=== PATIENT | female | born 1950 | race African-American/Black ===

== ENCOUNTER 2017-03-11 14:07 | Inpatient (IN) ==
[2017-03-11 15:10] LABS: Apearance,Urine CLOUDY (Clear); Bilirubin,Urine Negative (Negative); Blood, Urine Large mg/dL (Negative); Glucose,Urine (UA) 50 mg/dL (Negative); Ketones,Urine Negative (Negative); Nitrite,Urine Negative (Negative); Protein,Urine 100 MG/DL; RBC,Urine 4048 /HPF (0-4); Squamous Epithelial Cell,Urine Occasional /HPF (0-10); Urine Color Red (Yellow); Urine Urobilinogen < 2.0 EU/DL (0.2-1.0)
--- NOTE | 2017-03-11 15:45 | Emergency Department Note ---
Arrival - Arrival Chief Complaint: Urogenital - Female Stated Complaint: Blood in urine. Blood count low ED Nursing Triage Note: PT C/O HEMATURIA SINCE THIS WEEKEND- PT SEEN AT PCP BEFORE ARRIVING AT ER AND WAS TOLD HER BLOOD COUNTS WERE LOW. PT DENIES DYSURIA OR FREQUENCY. DENIES BLOOD IN STOOL. C/O LOWER ABD PAIN. Mode of Arrival: Wheelchair Source: Patient Time Seen by Provider: 03/11/17 15:11 - History of Present Illness HPI Narrative: 67 y/o female presents to the ER complaining of hematuria. Symptoms started Saturday. She was seen by Dr. Kline in [place] this morning and instructed to come to the Emergency Room. Reports mild discomfort to lower abdomen. Denies dysuria or urinary frequency. Patient family physician believes it is the Eliquis she has been on after total hip replacement on 02/14/17. Her last dose of Eliquis was last night. Past medical history significant for HTN, Right Total Hip Replacement, IDDM. Primary Care Physician: Dr. Kline [employer] Resource Planning Consultant: Dr. Escobar Onset (ago): day(s) (4) Severity: mild Date of Last Menstrual Period: MENOPAUSE Allergies/Adverse Reactions: Allergies Allergy/AdvReac Type Severity Reaction Status Date / Time codeine Allergy Blurry Verified 03/11/17 14:39 Vision Review of System - Review of System 12 point system: reviewed and no additional remarkable complaints except as stated - Review of System Gastrointestinal: Present: abdominal pain Genitourinary female: Present: hematuria Medical,Surgical,& Family Hx - Medical History Cardio: History of: Hypertension Endocrine: History of: Diabetes Mellitus (IDDM) - Surgical History Orthopedic Surgeries: Surgical HX of;: Total Hip Replacement (RIGHT) - Social History Smoking Status: Never smoker Frequency of Alcohol Use: None Type of Drug Use: None Exam Vital Signs: Vital Signs Temperature 98.7 F 03/11/17 16:39 Pulse Rate 70 03/11/17 16:39 Respiratory Rate 18 03/11/17 16:39 Blood Pressure 151/80 03/11/17 16:39 O2 Sat by Pulse Oximetry 20 L 03/11/17 16:05 - General General appearance: alert, in no apparent distress - ENT ENT exam: Present: normal exam, normal oropharynx, mucous membranes moist - Chest Chest inspection: Present: normal inspection - Respiratory Respiratory exam: Present: normal lung sounds bilaterally - Cardiovascular Cardiovascular exam: Present: regular rate, normal rhythm, normal heart sounds - Abdominal Exam Abdominal exam: Present: soft, tenderness (suprapubic ), normal bowel sounds - Extremities Exam Extremities exam: Present: normal inspection, full ROM - Back Exam Back exam: Absent: CVA tenderness (R), CVA tenderness (L) - Neurological Exam Neurological exam: Present: alert, oriented X3 - Psychiatric Psychiatric exam: Present: normal affect, normal mood - Skin Skin exam: Present: warm, dry Course Course Narrative: 1700: Sarah Mendoza MUD MIXER OPERATOR to Non-Urgent to evaluate patient for admission. - Consultations Consultation #1: Hospitalist Time: 16:45 (Discussed case with Noel AVELAR. Will admit patient to their services. ) Results - Labs CBC & BMP: 03/11/17 14:59 03/11/17 14:59 Lab Results: I have reviewed the patients labs Labs: UA: +blood - Diagnostic Findings Procedure: CT Abdomen and Pelvis: image reviewed by me, report reviewed by me ( 1. Increased density within the right upper pole calyces and ureter, likely represent active hemorrhage ) Disposition Clinical Impression: Hematuria, Anemia, Renal insufficiency Case discussed with: patient Disposition: Still a Patient Condition: Stable
[2017-03-11 16:22] LABS: Basophils % 0.6 % (0.0-0.8); Eosinophils # 0.2 10*3/uL (0.0-0.87); Eosinophils % 3.5 % (0.00-10.9); Hematocrit 20.2 VOL% (35.7-47.0); Hemoglobin 6.5 GM/DL (12.0-16.0); Immature Granulocytes % 0.3 %; Immature Granulocytes Absolute 0.02 #; Lymphocytes # 1.4 10*3/uL (1.4-4.0); Lymphocytes % 20.7 % (21.3-54.2); Mean Corpuscular HGB Conc 32.2 GM/DL (32-36); Mean Corpuscular Hemoglobin 27 PG (27-34); Mean Corpuscular Volume 85.2 FL (87-102); Mean Platelet Volume 10.6 FL (9.6-12.0); Monocytes # 0.9 10*3/uL (0.11-0.8); Monocytes % 12.4 % (1.7-12.7); Neutrophils # 4.4 10*3/uL (1.4-7.4); Neutrophils % 62.5 % (38.7-73.9); Platelet Count 217 T/CUMM (130-400); Red Blood Count 2.37 MC/CUMM (3.8-5.5); Red Cell Distribution Width 13.3 % (9.3-17.3)
[2017-03-11 17:03] LABS: Alanine Aminotransferase < 9 U/L (13-56); Albumin 2.9 G/DL (3.4-5.0); Alkaline Phosphatase 69 U/L (45-117); Aspartate Amino Transferase 13 U/L (0-37); Bilirubin,Total < 0.39 MG/DL (0.2-1.0); Blood Urea Nitrogen 78 MG/DL (7-18); Calcium 9.3 MG/DL (8.5-10.1); Glucose 125 MG/DL (74-106); Osmolality,Calculated 302.4 MOS/KG (273-304); Potassium 4.1 MMOL/L (3.5-5.1); Sodium 140 MMOL/L (136-145); Total Protein 7.2 G/DL (6.4-8.3)
--- NOTE | 2017-03-11 17:29 | CT Report ---
Exam: CT abdomen and pelvis without intravenous contrast Exam date: March 11, 2017 1700 hours Clinical History: 67-year-old female with hematuria and abdominal pain, generalized Technique: Axial computed tomography images of the abdomen and pelvis without intravenous contrast. All CT scans at this facility use one or more dose reduction techniques. Automated exposure control, MA/KV adjustment per patient size (including targeted exam Square dose is matched to indication) or iterative reconstruction technique Comparison: No relevant comparisons Findings: Lower thorax: Four-chamber cardiomegaly with moderate pericardial effusion. Abdomen: Liver: Unremarkable Gallbladder and bile ducts: Unremarkable. No calcified stones. No ductal dilatation. Pancreas: Pancreas is normal. Spleen: Spleen is normal. Adrenals: Bilateral adrenal hyperplasia. Kidneys and ureters: Multicystic kidneys with hyperdensity within the right upper pole calyces, likely hemorrhage. Few small calcifications felt to represent cystic wall calcifications bilaterally. No calyceal stones are appreciated Stomach and bowel: No evidence of acute gastritis, colitis or enteritis. No bowel obstruction. Scattered colonic diverticula. Appendix: Normal appendix. No primary or secondary signs to suggest appendicitis. Pelvis: Bladder: Unremarkable Reproductive: Fibroid uterus. Abdomen and pelvis: Intraperitoneal space: No pneumoperitoneum. No free intraperitoneal fluid Bones/joints: No acute osseous abnormality. Spondylitic changes throughout the spinal axis and pelvis Soft tissues: No mass Vasculature: No aortic aneurysm. Atheromatous calcifications noted along the aorta and branch vessels. Lymph nodes: No adenopathy Pelvis is markedly limited in evaluation secondary to streak artifact from bilateral hip arthroplasties Impression: 1. Increased density within the right upper pole calyces and ureter, felt to represent active hemorrhage. Evaluation for underlying renal mass is markedly limited given unenhanced technique. 2. Polycystic kidneys 3. Diverticulosis coli 4. Moderate pericardial effusion 5. Fibroid uterus 6. Other findings as discussed above PROCEDURE INTERPRETED AT [facility] DEPARTMENT OF RADIOLOGY Final Report Signed by: Ken Galvan
--- NOTE | 2017-03-11 17:32 | Hospitalist History & Physical ---
<Sarah Mendoza - Last Filed: 03/11/17 18:01> Assessment and Plan - Time spent with patient Time spent with patient: Greater than 30 minutes (1) Anemia Status: Acute Assessment and plan: 03/11/17 Admit to monitored Bed Start Gentle IV hydration H&H: 6.5 & 20.2: Type and screen, crossmatch with transfuse 2 units PRBCs repeat a.m. labs Will HOLD Eliquis BUN 78 and Creatinine 8.50: consult renal for acute/chronic renal disease ( being followed by Dr Escobar) Will discuss with Dr Rosa for further recommendations with care. Current Visit: Yes (2) Hematuria Status: Acute Current Visit: Yes (3) Renal disease Status: Acute Assessment and plan: 03/11/17 Consulted Nephrology for follow up on BUN 78 and Creatinine 8.50. Patient has been followed by Dr Escobar. Current Visit: Yes History of Present Illness Chief complaint: low H&H, hematuria History of present illness: Ms. Chavez is a 67 year old black female w/PMHx hypertension, diabetes, chronic kidney disease without dialysis, rheumatoid arthritis, recent right total hip replacement 02/14/17 sent home on Eliquis. She reports lower abdominal pain, tenderness for a couple of days. She denies shortness of breath , chest pain, dysuria, or urinary frequency. She denies dizziness or headache. She reports going to PCP Dr Kline and was advised to go to the ED for further evaluation of hematuria. In Non-urgent ED: Labs significant: H&H 6.5 & 20.2, Anion Gap 16.1, BUN 78, Creatinine 8.50, Urinalysis: Red, Cloudy, RBC 4048, blood large. Vital Signs stable Temp 98.7, HR 70, RR 18, BP 151/80, O2 SAT 99 % . Abd/Pelvis CT: Increased density within the right upper pole calyces and ureter , felt to represent active hemorrhage, evaluation for underlying renal mass is markedly limited given unenhanced technique; polycystic kidneys; diverticulosis coli; moderate pericardial effusion; fibroid uterus. She quit smoking 5-6 years ago, she quit drinking alcohol 5-6 years ago, denies illicit drug use. PCP: Dr Kline Renal: Dr Escobar (chronic renal disease/without dialysis) Chronic back pain: Dr Huffman After discussion with Marcelo Casey NP and Dr Rosa with Hospitalist Medicine, it was agreed to admit patient for further evaluation of anemia and hematuria. ONCe Home medications have been added to the system, they will need to be reviewed and reconciliation to follow. Allergies Allergy/AdvReac Type Severity Reaction Status Date / Time codeine Allergy Blurry Verified 03/11/17 14:39 Vision Medical,Surgical,& Family Hx - Medical History Cardio: History of: Hypertension Endocrine: History of: Diabetes Mellitus (IDDM) - Surgical History Orthopedic Surgeries: Surgical HX of;: Orthopedic Surgery (right hand tendon release), Total Hip Replacement (RIGHT) - Social History Smoking Status: Former smoker (quit 5-6 years ago) Frequency of Alcohol Use: None (quit 5-6 years ago) Type of Drug Use: None Marital Status: Single Lives With:: her daughter and granddaughter live with her Functional capacity: uses cane/walker 12 point system: reviewed and no additional remarkable complaints except as stated - Constitutional Constitutional: Present: chills. Absent: fever(s) - EENT Nose, mouth and throat: Absent: epistaxis - Cardiovascular Cardiovascular: Absent: chest pain at rest, chest pain with activity, dyspnea, dyspnea on exertion - Respiratory Respiratory: Absent: dyspnea, hemoptysis - Gastrointestinal Gastrointestinal: Present: abdominal pain. Absent: hematemesis, nausea, vomiting - Genitourinary Genitourinary: Present: hematuria. Absent: dysuria, urinary frequency Exam - Constitutional Vitals: Period Temp Pulse Resp BP Sys/Campos Pulse Ox Last 24 Hr 98.7 F-98.7 F 70-95 18-18 151-177/78-80 20-99 General appearance: normal weight, no acute distress - Head Head exam: Present: normal inspection - Eye Eye exam: Present: EOMI Pupils: Present: AYAAN - Neck Neck exam: Present: normal inspection. Absent: thyromegaly - Respiratory Respiratory exam: Present: clear to auscultation bilaterally. Absent: rhonchi, stridor, wheezes - Cardiovascular Cardiovascular exam: Present: regular rate and rhythm - GI/Abdominal GI/Abdominal exam: Present: normal bowel sounds, tenderness (lower abdominal tenderness), soft. Absent: firm, guarding, rebound - Extremities Exam Extremities exam: Present: normal inspection, full ROM. Absent: edema - Neurological Exam Neurological exam: Present: alert, oriented X3, CN II-XII intact - Psychiatric Psychiatric exam: Present: normal affect, normal mood. Absent: agitated, anxious - Skin Skin exam: Present: normal color, warm, dry Results - Labs CBC & BMP: 03/11/17 14:59 03/11/17 14:59 Lab Results: I have reviewed the past 24 hour labs Labs: URINALYSIS: color: red Nitrate: negative leukocytes: negative Urine RBC 4048 - Diagnostic Findings Procedure: CT Abdomen and Pelvis: report reviewed by me (Increased density within the right upper pole calyces and ureter, felt to represent active hemorrhage; evaluation for underlying renal mass is markedly limited given unenhanced technique; polycystic kidneys; diverticulosis coli; moderate pericardial effusion; fibroid uterus.) <ShelleyMadelin R - Last Filed: 03/11/17 20:34> Assessment and Plan (1) Hematuria Status: Acute Assessment and plan: Three-way Morrissey with irrigation, consult Dr. Orozco from neurology, CT shows renal mass versus hematoma Current Visit: Yes (2) Chronic renal disease, stage V Status: Acute Assessment and plan: Consult Yuni Rose, hydration Current Visit: Yes (3) Hypertension Status: Acute Assessment and plan: Coreg 6.25 mg p.o. twice daily Current Visit: Yes (4) Anemia Status: Acute Assessment and plan: DC Eliquis, 2 units of packed red blood cells and monitor hemoglobin every 6 hours, patient denies a history of atrial fib we get a stat EKG Current Visit: Yes History of Present Illness History of present illness: Ms. Chavez is a 67 year old female seen and examined. Has chronic renal failure and sees dr. Escobar, recently been taken off eliquis. Denies blood or black tarry stools Medical,Surgical,& Family Hx - Family History Family History: Denies;: Family Cancer, Family Diabetes, Family Heart Disease - EENT Eyes: Absent: blurry vision, diplopia Ears: Absent: decreased hearing, ear discharge - Neurological Neurological: Absent: confusion, headache(s) - Psychiatric Psychiatric: Absent: anxiety, depression - Endocrine Endocrine: Present: fatigue. Absent: cold intolerance, heat intolerance - Hematologic/Lymphatic Hematologic/Lymphatic: Present: easy bleeding, easy bruising Exam - Constitutional Vitals: Period Temp Pulse Resp BP Sys/Campos Pulse Ox Last 24 Hr 98.7 F-98.7 F 70-95 18-20 151-177/78-80 20-99 - Head Head exam: Present: normocephalic - Eye Eye exam: Absent: scleral icterus Pupils: Present: normal accommodation - ENT ENT exam: Present: normal exam, normal external ear exam - Cardiovascular Cardiovascular exam: Absent: systolic murmur - Neurological Exam Neurological exam: Present: reflexes normal. Absent: motor sensory deficit Results - Labs CBC & BMP: 03/11/17 14:59 03/11/17 14:59
[2017-03-11] MEDS ORDERED: GLUCAGON 1 MG VIAL IM PRN (17:50)
[2017-03-11] MEDS ORDERED: ONDANSETRON 4 MG/2 ML VIAL IV PRN (17:50)
[2017-03-11] MEDS ORDERED: ACETAMINOPHEN 325 MG TABLET PO PRN (17:50)
[2017-03-11] MEDS ORDERED: DEXTROSE 50% 25 GM/50 ML VIAL IV PRN (17:50)
[2017-03-11] MEDS ORDERED: SODIUM CHLORIDE 0.9% 250 ML IV PRN (17:56)
[2017-03-11] MEDS: SODIUM CHLORIDE 0.9% 1,000 ML IV SCH (21:39)
[2017-03-11] MEDS: CARVEDILOL 6.25 MG TABLET PO SCH (21:39)
[2017-03-11] MEDS: MORPHINE 2 MG/1 ML SYRINGE IV PRN (21:40)
[2017-03-11] MEDS: INSULIN LISPRO 100 UNIT/ML SUBCUT SCH (21:40)
[2017-03-12] MEDS: MORPHINE 2 MG/1 ML SYRINGE IV PRN ×2 (01:46→09:25)
[2017-03-12 07:26] LABS: Hemoglobin 8.1 GM/DL (12.0-16.0)
[2017-03-12 07:32] LABS: INR 1.1
[2017-03-12 07:49] LABS: Basophils % 0.2 % (0.0-0.8); Hematocrit 25.2 VOL% (35.7-47.0); Immature Granulocytes % 0.6 %; Immature Granulocytes Absolute 0.08 #; Lymphocytes # 0.7 10*3/uL (1.4-4.0); Lymphocytes % 5.5 % (21.3-54.2); Mean Corpuscular HGB Conc 32.9 GM/DL (32-36); Mean Corpuscular Hemoglobin 28 PG (27-34); Mean Corpuscular Volume 84.8 FL (87-102); Mean Platelet Volume 10.8 FL (9.6-12.0); Monocytes # 0.7 10*3/uL (0.11-0.8); Monocytes % 5.8 % (1.7-12.7); Neutrophils % 87.9 % (38.7-73.9); Platelet Count 196 T/CUMM (130-400); Red Cell Distribution Width 13.7 % (9.3-17.3)
--- NOTE | 2017-03-12 07:58 | Nephrology Consult Note ---
History of Present Illness Chief complaint: increased bun and creatinine History of present illness: Ms. Chavez is a 67 year old female who I follow in the outpatient setting for chronic renal failure. The patient was admitted yesterday for hematuria. The patient states about 3 days prior to admission she developed some severe pain in her abdomen and noticed some blood in her toilet bowl after going to the bathroom. The pain persisted over the ensuing day or so and she continued to have some blood in her urine. The patient's pain had improved by the following day. Patient did have some nausea and vomiting yesterday. The patient has had a CT scan of her abdomen that shows a density in her right kidney thought to be consistent with a hematoma. The patient is also noted to have multiple cysts throughout both kidneys. The patient denies any shortness of breath she denies any decreased intake. She does state that her urine output has decreased some the past few days. ROS: Head - denies headaches ENT - denies sore throat Lymphatics - denies lymphadenopathy Hematology -see HPI Heart - denies chest pain Lungs - denies shortness of breath Abdomen -see HPI Musculoskeletal -complains of hurting all over Skin - denies rash Neurology - denies stroke General - denies fever PE: General: in no acute distress Eyes: Pupils are round and reactive, conjunctivae are clear ENT: Nose is clear, O/P is benign Neck: Supple, no thyromegaly Lymphatics: No cervical, supraclavicular or axillary adenopathy Heart: Regular rate and rhythm, no edema Lungs: Clear to auscultation anteriorly, chest expansion symmetric Abdomen: Soft, normoactive bowel sounds, no hepatomegaly, non-tender Musculoskeletal: No joint erythema or effusions or joint asymmetry Skin: Normal turgor, normal hydration, no rash Neuro/Psych: Alert and cooperative with fair insight Home Medications Medication Instructions Recorded Confirmed Type Amlodipine Besylate 1 tablet PO DAILY 03/11/17 03/11/17 History Apixaban [Eliquis] 1 tablet PO BID 03/11/17 03/11/17 History Carvedilol 1 tablet PO BID 03/11/17 03/11/17 History Furosemide Tab [Lasix Tab] 1 tablet PO DAILY 03/11/17 03/11/17 History Insulin Detemir [Levemir] 20 units SUBCUT BID 03/11/17 03/11/17 History Lisinopril/Hctz 20-25 [Prinzide 1 tablet PO DAILY 03/11/17 03/11/17 History 20-25] hydrOXYzine pamoate [Hydroxyzine 25 mg PO Q8HR PRN 03/11/17 03/11/17 History Pamoate] Allergies Allergy/AdvReac Type Severity Reaction Status Date / Time codeine Allergy Blurry Verified 03/11/17 14:39 Vision Medical,Surgical,& Family Hx - Medical History Cardio: History of: Hypertension Psychological: No history of: Anxiety Disorders, ADHD, Behavior Problems, Bipolar Disorder, Depression, Previous Suicide Attempt, Psychiatric/Substance Abuse Tx, Schizophrenia, Violent Behavior, Psychiatric Problems Endocrine: History of: Diabetes Mellitus (IDDM) Rheumatology: History of;: Rheumatoid Arthritis Genitourinary: History of: Problems (hematuria) - Surgical History Abdominal Surgeries: Patient denies: Abdominal Surgery Orthopedic Surgeries: Surgical HX of;: Orthopedic Surgery (right hand tendon release), Total Hip Replacement (RIGHT) - Family History Family History: Reports;: Family Diabetes, Family Hypertension Denies;: Family Cancer, Family Heart Disease - Social History Smoking Status: Never smoker Frequency of Alcohol Use: None Type of Drug Use: None Exam - Vital Signs Vital signs: Period Temp Pulse Resp BP Sys/Campos Pulse Ox Last 24 Hr 97.5 F-98.8 F 61-95 16-20 103-177/49-80 20-99 Results - Labs CBC & BMP: 03/12/17 06:27 03/11/17 14:59 Assessment and Plan (1) Chronic renal disease, stage V Status: Acute Assessment and plan: This patient's creatinine as an outpatient about a month or so ago was around 8 mg/dL after her hip surgery at increased around 9 mg/dL, her kidney function remained stable her chemistries look okay she is having some nausea and vomiting however think this may be related to her acute illness. She does have a fistula in her left arm and it would be easy to start her on dialysis if necessary. However at this time I think the patient remains asymptomatic enough that we can continue to monitor her kidney function without dialysis for right now. Current Visit: Yes (2) Blood loss anemia Status: Acute Current Visit: Yes (3) Diabetes mellitus Status: Acute Current Visit: Yes (4) Hematuria Status: Acute Current Visit: Yes (5) Hypertension Status: Acute Current Visit: Yes
[2017-03-12 08:00] LABS: Magnesium 2.7 MG/DL (1.8-2.4); Potassium 4.1 MMOL/L (3.5-5.1)
[2017-03-12 08:02] LABS: Hemoglobin 8.3 GM/DL (12.0-16.0); Red Blood Count 2.97 MC/CUMM (3.8-5.5); White Blood Count 12.6 T/CUMM (4-12)
[2017-03-12 08:05] LABS: % Iron Saturation 7.4 % (18-50); Ferritin 406.4 ng/ml (8-252)
[2017-03-12 08:13] LABS: Band Neutrophils 1 % (0-10); Giant Platelets Few; Hypochromasia 1+; Lymphocytes 3 % (20-55); Microcytosis Slight; Ovalocytes Slight; Platelet Estimate Normal; Segmented Neutrophils 91 % (50-85); Total Cells Counted 100
[2017-03-12 08:22] LABS: Folate > 24.0 NG/ML (5.4-24.0); Vitamin B12 933 PG/ML (211-911)
[2017-03-12] MEDS ORDERED: DESMOPRESSIN 10 MCG NASAL SPRAY 5 ML BOTTLE BOTH NARES ONE (09:00)
--- NOTE | 2017-03-12 09:09 | Urology Consultation ---
Assessment and Plan - Time spent with patient Time spent with patient: Greater than 30 minutes (1) Gross hematuria Status: Acute Current Visit: Yes (2) Abnormal CT of the abdomen Status: Acute Assessment and plan: Hematuria is clearing. I am going to order an ultrasound to evaluate her kidneys. Difficult to tell with her CT because it is not a contrasted study. Has multiple cysts. No stones and no discrete masses. Current Visit: Yes History of Present Illness - Data of Consult Patient: new to practice Consult date: 03/12/17 Requesting Physician: Gee Escobar - Consult Narrative Reason for consult: Gross hematuria History of present illness: Ms. Chavez is a 67 year old female who had a hip replacement. She was placed on Eliquis and developed gross hematuria. She is admitted and had a three-way irrigation placed in. Her E fluent is clear now we will remove her Morrissey. CT scan shows the upper pole system that is irregular and probably had some clot. No definite mass is seen. No stones are seen. She does have chronic renal failure and has access placed but she is not on dialysis as yet. In reviewing the CT is very difficult to determine what is going on in that upper pole. I am going to order a renal ultrasound see if that will help us. I talked over the CT scan with Dr. Glavan. CC: Crystal Cortez MD - Home Medications and Allergies Home Medications: Home Medications Medication Instructions Recorded Confirmed Type Amlodipine Besylate 1 tablet PO DAILY 03/11/17 03/11/17 History Apixaban [Eliquis] 1 tablet PO BID 03/11/17 03/11/17 History Carvedilol 1 tablet PO BID 03/11/17 03/11/17 History Furosemide Tab [Lasix Tab] 1 tablet PO DAILY 03/11/17 03/11/17 History Insulin Detemir [Levemir] 20 units SUBCUT BID 03/11/17 03/11/17 History Lisinopril/Hctz 20-25 [Prinzide 1 tablet PO DAILY 03/11/17 03/11/17 History 20-25] hydrOXYzine pamoate [Hydroxyzine 25 mg PO Q8HR PRN 03/11/17 03/11/17 History Pamoate] Allergies/Adverse Reactions: Allergies Allergy/AdvReac Type Severity Reaction Status Date / Time codeine Allergy Blurry Verified 03/11/17 14:39 Vision Medical,Surgical,& Family Hx - Medical History Cardio: History of: Hypertension Psychological: No history of: Anxiety Disorders, ADHD, Behavior Problems, Bipolar Disorder, Depression, Previous Suicide Attempt, Psychiatric/Substance Abuse Tx, Schizophrenia, Violent Behavior, Psychiatric Problems Endocrine: History of: Diabetes Mellitus (IDDM) Rheumatology: History of;: Rheumatoid Arthritis Renal: History of: Renal Failure Genitourinary: History of: Problems (hematuria) - Surgical History Abdominal Surgeries: Patient denies: Abdominal Surgery Orthopedic Surgeries: Surgical HX of;: Orthopedic Surgery (right hand tendon release), Total Hip Replacement (RIGHT) - Family History Family History: Reports;: Family Diabetes, Family Hypertension Denies;: Family Cancer, Family Heart Disease - Social History Smoking Status: Never smoker Frequency of Alcohol Use: None Type of Drug Use: None 12 point system: reviewed and no additional remarkable complaints except as stated - Genitourinary Genitourinary: Present: hematuria Exam - Constitutional Vitals: Period Temp Pulse Resp BP Sys/Campos Pulse Ox Last 24 Hr 97.5 F-98.8 F 61-95 16-20 103-177/49-80 20-99 - GI/Abdominal GI/Abdominal exam: Present: normal bowel sounds, tenderness (Suprapubic), soft, other (No flank masses or CVA tenderness). Absent: ascites, distended, firm, guarding, hernia, mass, rebound Results - Labs CBC & BMP: 03/12/17 06:27 03/12/17 06:25 Lab Results: I have reviewed the past 24 hour labs - Diagnostic Findings Procedure: CT Abdomen and Pelvis: image reviewed by me, report reviewed by me ( Discussed with Dr. Galvan)
[2017-03-12] MEDS: CARVEDILOL 6.25 MG TABLET PO SCH ×2 (09:25→20:45)
[2017-03-12] MEDS: INSULIN LISPRO 100 UNIT/ML SUBCUT SCH ×4 (09:25→20:44)
[2017-03-12] MEDS: OXYBUTYNIN XL 5 MG TABLET PO SCH (09:25)
[2017-03-12] MEDS: PANTOPRAZOLE 40 MG VIAL IV SCH (09:25)
--- NOTE | 2017-03-12 09:28 | EKG Report ---
Stationary ECG Study [facility] Test Date: 03/12/2017 9:00:53 AM Pat Name: KARLEE DOUGLAS Department: Room: 529 Gender: F Bobbin Inspector: MARTHA : 1950 Requested by: Madelin Dixon Order Number: [id number] Reading MD: JUVENTINO THOMPSON Intervals [place] Rate: 79 P: 44 MI: 142 QRS: 44 QRSD: 97 T: -78 QT: 393 QTc: 428 Interpretive Statements SINUS RHYTHM Electronically Signed On 03-12-17 22:17:08 CDT by JUVENTINO THOMPSON [email or web address]
--- NOTE | 2017-03-12 11:48 | Ultrasound Report ---
US renal Bilateral Indication: Gross hematuria. Comparison: CT performed previous day at 1656 hours. Technique: Multiple longitudinal and transverse real-time sonographic images of the kidneys were obtained. Findings: The right kidney measures 14.0 x 8.1 x 7.2 cm, and the left kidney measures 13.4 x 7.8 x 6.1 cm. Numerous cortical and parapelvic cysts, some of which demonstrate thin wall echogenicities consistent with calcifications. No solid mass lesions. There is no evidence of nephrolithiasis or abnormal perinephric fluid collections. There is no hydronephrosis. There is no evidence of surrounding ascites. Ultrasound images were captured and stored. IMPRESSION: Polycystic kidneys. No solid mass lesions demonstrated. PROCEDURE INTERPRETED AT [facility] DEPARTMENT OF RADIOLOGY Final Report Signed by: Ken Galvan
[2017-03-12] MEDS: SODIUM CHLORIDE 0.9% 1,000 ML IV SCH ×2 (12:39→21:56)
--- NOTE | 2017-03-12 15:26 | Hospitalist Progress Note ---
Hospitalist: Subjective Interval history: This 67-year-old -[place] female with history of chronic kidney disease who presented with gross hematuria. She had recent hip surgery and was placed on Eliquis. Hematuria has significantly improved. Exam - Constitutional Vitals: Period Temp Pulse Resp BP Sys/Campos Pulse Ox Last 24 Hr 97.5 F-98.8 F 61-95 16-20 103-185/49-80 20-98 Exam: General: No Acute Distress HEENT: Normocephalic, atraumatic, Extra ocular movements intact Neck: Supple, No JVD Chest: Clear to auscultation B/L CV: S1 + S2 audible without murmur, gallop or rub Abd: soft, NT, Non-distended, BS + Ext: No edema Skin: No purpura, bruising or rash Rheumatologic: No Joint deformities Neurologic: Awake and alert Results - Labs CBC & BMP: 03/12/17 06:27 03/12/17 06:25 - Impressions Assessment and Plan: Gross hematuria Status: Acute Current Visit: Yes This is improving. CT abdomen pelvis without contrast showed a possible right upper pole hematoma. We will follow up on ultrasound of the kidneys. Anemia of genitourinary blood loss Status: Acute Current Visit: Yes Hematocrit is much better after blood transfusion Chronic renal disease, stage V Status: Acute Assessment and plan: Currently she is not on hemodialysis, but does have AV fistula in case she needs it Current Visit: Yes Ess Hypertension Status: Acute Current Visit: Yes Diabetes mellitus-2 Status: Acute Current Visit: Yes Quality Measures - Stroke Symptom Onset Unknown: No
--- NOTE | 2017-03-13 07:48 | Nephrology Progress Note ---
Nephrology - PN: Subj Interval history: Patient complains of some nausea and vomiting with supper last night. Review of systems pulmonary she denies shortness of breath Physical exam general the patient is chronically ill-appearing Assessment/plan 1. Chronic kidney disease stage V-this patient's creatinine is increased to 9.3 mg/dL, she is having some nausea and vomiting on a regular basis, I talked to her about starting dialysis she did not object to this. At this point I am going to go ahead and plan on dialyzing her today. 2. Hematuria-patient's hematuria had cleared although she had some more hematuria this morning apparently we will continue to monitor hematocrit 3. Anemia-we will start EPO on dialysis 4. Diabetes mellitus 5. Hypertension Exam (PN)-Nephrology - Vital Signs Vital signs: Period Temp Pulse Resp BP Sys/Campos Pulse Ox Last 24 Hr 97.9 F-99.2 F 68-92 18-20 134-185/58-92 84-93 - Lab 03/12/17 06:27 03/12/17 06:25 Most recent lab results Calcium 9.0 MG/DL (8.5-10.1) 03/12/17 06:25 Magnesium 2.7 MG/DL (1.8-2.4) H 03/12/17 06:25 Assessment and Plan (1) Chronic renal disease, stage V Status: Acute Assessment and plan: This patient's creatinine as an outpatient about a month or so ago was around 8 mg/dL after her hip surgery at increased around 9 mg/dL, her kidney function remained stable her chemistries look okay she is having some nausea and vomiting however think this may be related to her acute illness. She does have a fistula in her left arm and it would be easy to start her on dialysis if necessary. However at this time I think the patient remains asymptomatic enough that we can continue to monitor her kidney function without dialysis for right now. Current Visit: Yes (2) Blood loss anemia Status: Acute Current Visit: Yes (3) Diabetes mellitus Status: Acute Current Visit: Yes (4) Hematuria Status: Acute Current Visit: Yes (5) Hypertension Status: Acute Current Visit: Yes
[2017-03-13] MEDS ORDERED: EPOETIN ALFA 2,000 UNIT/1 ML VIAL IV PRN (07:52)
[2017-03-13] MEDS: INSULIN LISPRO 100 UNIT/ML SUBCUT SCH ×4 (08:45→21:27)
[2017-03-13] MEDS: CARVEDILOL 6.25 MG TABLET PO SCH ×3 (08:46→21:27)
[2017-03-13] MEDS: OXYBUTYNIN XL 5 MG TABLET PO SCH (08:47)
[2017-03-13] MEDS: PANTOPRAZOLE 40 MG VIAL IV SCH (08:47)
[2017-03-13 09:14] LABS: % Iron Saturation 8.9 % (18-50); Ferritin 385.1 ng/ml (8-252)
[2017-03-13 09:43] LABS: Basophils # 0.1 10*3/uL (0.0-0.2); Basophils % 0.5 % (0.0-0.8); Eosinophils # 0.1 10*3/uL (0.0-0.87); Eosinophils % 0.5 % (0.00-10.9); Hematocrit 22.2 VOL% (35.7-47.0); Immature Granulocytes % 0.4 %; Immature Granulocytes Absolute 0.04 #; Lymphocytes # 1.3 10*3/uL (1.4-4.0); Lymphocytes % 11.8 % (21.3-54.2); Mean Corpuscular HGB Conc 32.9 GM/DL (32-36); Mean Corpuscular Hemoglobin 28 PG (27-34); Mean Corpuscular Volume 85.1 FL (87-102); Mean Platelet Volume 10.9 FL (9.6-12.0); Monocytes # 1.2 10*3/uL (0.11-0.8); Neutrophils # 8.3 10*3/uL (1.4-7.4); Neutrophils % 75.8 % (38.7-73.9); Platelet Count 192 T/CUMM (130-400); Red Blood Count 2.61 MC/CUMM (3.8-5.5); Red Cell Distribution Width 14.1 % (9.3-17.3); White Blood Count 10.9 T/CUMM (4-12)
[2017-03-13 09:48] LABS: Hemoglobin 7.3 GM/DL (12.0-16.0)
--- NOTE | 2017-03-13 09:59 | Physician Query Form ---
CLICK EDIT DOCUMENT TO SELECT QUERY ANSWER --> OK --> SIGN Snow Lorenzo RN Clinical Industrial Production Manager W) [phone] (f) [phone] [email or web address] PROVIDERS: Make your selection(s) from the choices in EACH section by typing an "x" and enter comments in the comment section. Please use your independent medical judgment in providing your response. This request does not imply that any particular answer is desired or expected. CLINICAL INDICATORS: (Providers should not edit this section) Based on lab results of creatinine on admission of 8.50 and increased to 9.30 with a GFR of 5. Pt. treated with IV fluids of Normal Saline. Pt. has documented CKD stage 5. Clarify which of the following most accurately represents the patient's renal status: ( ) Acute renal failure with underlying Chronic Kidney Disease (CKD) - please provide stage below ( ) CKD - please provide stage below ( ) End Stage Renal Disease ( ) Other, please specify: ( ) Clinically unable to determine Chronic Kidney Disease Stages Source: National Kidney Disease Foundation ( ) Stage I (eGFR > or = 90) ( ) Stage II (eGFR 60 - 89) ( ) Stage III (eGFR 30 - 59) ( ) Stage IV (eGFR 15 - 29) ( ) Stage V (eGFR < 15 or dialysis) COMMENTS: PLEASE ALSO DOCUMENT RESPONSE IN PROGRESS NOTES AND/OR DISCHARGE SUMMARY Use of terms such as suspected, likely, or probable (associated with a specific diagnosis that is being evaluated, monitored, or treated as if it exists) are acceptable and can be restated in the discharge summary if not ruled out. MTDD
[2017-03-13 10:14] LABS: Hepatitis A Ab IgM Quant 0.42 Index; Hepatitis A Ab IgM Result Negative (Negative); Hepatitis B Core IgM Quant 0.12 Index; Hepatitis B Core IgM Result Negative (Negative); Hepatitis B Surface Ag Quant 0.15 Index; Hepatitis B Surface Ag Result Negative (Negative); Hepatitis C Virus Ab Quant 0.21 Index; Hepatitis C Virus Ab Result Negative (Negative)
[2017-03-13] MEDS ORDERED: SODIUM CHLORIDE 0.9% 250 ML IV PRN (10:57)
--- NOTE | 2017-03-13 12:15 | EKG Report ---
Stationary ECG Study [facility] Test Date: 03/13/2017 12:14:38 PM Pat Name: KARLEE DOUGLAS Department: Room: 529 Gender: F Dermatological Surgeon: MARTHA : 1950 Requested by: Crystal Cortez Order Number: [id number] Reading MD: JUVENTINO THOMPSON Intervals [place] Rate: 138 P: 999 MS: 0 QRS: 17 QRSD: 89 T: 0 QT: 291 QTc: 372 Interpretive Statements ATRIAL FLUTTER WITH RAPID VENTRICULAR RESPONSE Electronically Signed On 03-13-17 21:18:29 CDT by JUVENTINO THOMPSON [email or web address]
--- NOTE | 2017-03-13 13:03 | Dialysis Note ---
Dialysis Note - Dialysis Note Patient seen on dialysis. She is tolerating the procedure. Blood pressures noted 170/85 Abdomen is soft. Lungs clear to auscultation. Cardiovascular is irregular rate.
[2017-03-13] MEDS: MORPHINE 2 MG/1 ML SYRINGE IV PRN (15:32)
--- NOTE | 2017-03-13 16:40 | Hospitalist Progress Note ---
Hospitalist: Subjective Interval history: Patient developed tachycardia while she was on hemodialysis, which was found to be due to new onset atrial ablation with RVR. Hematuria has improved. Exam - Constitutional Vitals: Period Temp Pulse Resp BP Sys/Campos Pulse Ox Last 24 Hr 98.2 F-99.4 F 68-138 16-20 134-155/58-92 88-93 Exam: General: No Acute Distress HEENT: Normocephalic, atraumatic, Extra ocular movements intact Neck: Supple, No JVD Chest: Clear to auscultation B/L CV: S1 + S2 audible without murmur, gallop or rub Abd: soft, NT, Non-distended, BS + Ext: No edema Skin: No purpura, bruising or rash Rheumatologic: No Joint deformities Neurologic: Awake and alert Results - Labs CBC & BMP: 03/13/17 08:19 03/12/17 06:25 - Impressions Assessment and Plan: Gross hematuria Status: Acute Current Visit: Yes This is improving. CT abdomen pelvis without contrast showed a possible right upper pole hematoma. We will follow up on ultrasound of the kidneys. Anemia of genitourinary blood loss Status: Acute Current Visit: Yes Hematocrit is much better after blood transfusion Paroxysmal atrial fibrillation with RVR Status: Acute Assessment and plan: This is new onset, heart rate was in 130s. She was on Eliquis and this has been on hold because of hematuria and anemia. Continue Coreg Current Visit: Yes Chronic renal disease, stage V/ESRD Status: Acute Assessment and plan: She has been started on hemodialysis this admission Current Visit: Yes Ess Hypertension Status: Acute Current Visit: Yes Diabetes mellitus-2 Status: Acute Current Visit: Yes Quality Measures - Stroke Symptom Onset Unknown: No
--- NOTE | 2017-03-13 18:34 | Urology Progress Note ---
Assessment and Plan (1) Gross hematuria Status: Acute Current Visit: Yes (2) Abnormal CT of the abdomen Status: Acute Assessment and plan: Hematuria is clearing. I am going to order an ultrasound to evaluate her kidneys. Difficult to tell with her CT because it is not a contrasted study. Has multiple cysts. No stones and no discrete masses. Current Visit: Yes Urology - PN: Subj Interval history: Patient had a mild amount hematuria today. Renal ultrasound shows multiple cysts. Her creatinine is risen and they have started her on dialysis. I am of the opinion, that we observe the situation. We do not see any solid renal mass. If he continues to have hematuria we may ureteroscope this. But hopefully this will settle down. Exam - Constitutional Vitals: Period Temp Pulse Resp BP Sys/Campos Pulse Ox Last 24 Hr 97.6 F-99.4 F 68-138 16-20 134-164/58-92 88-93 Results - Labs CBC & BMP: 03/13/17 08:19 03/12/17 06:25
[2017-03-14] MEDS: MORPHINE 2 MG/1 ML SYRINGE IV PRN (01:28)
--- NOTE | 2017-03-14 06:11 | Cardiology Consult Note ---
Fred Nagel April, RN, am scribing for, and in the presence of, Luis Vu MD 06:11. Assessment and Plan - Time spent with patient Time spent with patient: Greater than 30 minutes (Due to assessment, planning, documentation, medication review) (1) Atrial fibrillation with RVR Status: Acute Assessment and plan: She was found to be in atrial fibrillation with heart rates in the 130s while on dialysis. We will place her on telemetry monitoring. She was on Eliquis and this has been on hold because of hematuria and low blood counts. Current Visit: Yes (2) Anemia Status: Acute Assessment and plan: She has had 2 units of packed red blood cells this admission. H&H today is 7.3 and 22.2. Current Visit: Yes (3) Chronic renal disease, stage V Status: Chronic Assessment and plan: She started dialysis today, Dr. Escobar is following. Current Visit: Yes (4) Diabetes mellitus Status: Chronic Assessment and plan: Hospital medicine is managing. Current Visit: Yes (5) Hematuria Status: Acute Assessment and plan: Nephrology and urology are both following. Current Visit: Yes (6) Hypertension Status: Chronic Assessment and plan: Blood pressures were elevated on admission, they have improved over the last day or so. We will continue to monitor. Current Visit: Yes History of Present Illness - Data of Consult Patient: new to practice Consult date: 03/13/17 Requesting Physician: Crystal Cortez Primary care physician: Garrett Kline - Consult Narrative Reason for consult: New-onset A. fib RVR History of present illness: Medical Records Secretary: At [place] (she has only been seen for preoperative evaluation) PCP: Dr. Garrett Kline at [facility] Sociologist: Dr. Escobar Ms. Chavez is a 67 year old female with a history of hypertension, chronic kidney disease, rheumatoid arthritis, and IDDM. She is a poor historian but she denies ever having any issues with her heart rhythm or ever having had stress test or heart catheterization. Surgical history includes left hand, right hip, and left hip. She reports she quit smoking 45 years ago. Ms. Chavez presented to the emergency department on March 11 with complaints of hematuria and low blood count per her primary doctor. She had undergone total hip replacement on February 14 and administered on Eliquis. EKG on admission showed sinus rhythm with heart rate of 79. H&H on admission was 6.5 and 20.2 she has been transfused 2 units of packed red blood cells. H&H today is slightly improved at 7.3 and 22.2. Creatinine has increased to 9.3 as of yesterday with a BUN of 81. She was dialyzed for the first time today. While at dialysis she was noted to have heart rates in the 130s and in EKG was done. It showed atrial fibrillation with a heart rate of 138. She denies any chest pain, shortness of breath, palpitations, or dizziness at the time. I am seeing Ms. Chavez that she is back in her room after completing dialysis. She continues to deny any chest pain or shortness of breath. At the time her heart rate feels regular and her pulse is 80. We will place her on a monitoring tech. An echo has been ordered. We will review this. I have reviewed this pts evaluation and treatment plan with Nory Chow RN and agree with the evaluation and treatment plans as outlined above. I have personally examined this pt and reviewed the details of this case in person. CC: Crystal Cortez MD - Home Medications and Allergies Home Medications: Home Medications Medication Instructions Recorded Confirmed Type Amlodipine Besylate 1 tablet PO DAILY 03/11/17 03/11/17 History Apixaban [Eliquis] 1 tablet PO BID 03/11/17 03/11/17 History Carvedilol 1 tablet PO BID 03/11/17 03/11/17 History Furosemide Tab [Lasix Tab] 1 tablet PO DAILY 03/11/17 03/11/17 History Insulin Detemir [Levemir] 20 units SUBCUT BID 03/11/17 03/11/17 History Lisinopril/Hctz 20-25 [Prinzide 1 tablet PO DAILY 03/11/17 03/11/17 History 20-25] hydrOXYzine pamoate [Hydroxyzine 25 mg PO Q8HR PRN 03/11/17 03/11/17 History Pamoate] Allergies/Adverse Reactions: Allergies Allergy/AdvReac Type Severity Reaction Status Date / Time codeine Allergy Blurry Verified 03/11/17 14:39 Vision - Constitutional Constitutional: Present: as per HPI - EENT Eyes: Present: requires corrective lense. Absent: blurry vision Ears: Absent: decreased hearing, ear pain, tinnitus Nose, mouth and throat: Absent: dysphagia, epistaxis, headache(s), neck pain - Cardiovascular Cardiovascular: Absent: chest pain at rest, chest pain with activity, diaphoresis, dyspnea, dyspnea on exertion, edema, radiating jaw, neck or arm pain, lightheadedness, orthopnea, palpitations - Respiratory Respiratory: Present: cough. Absent: dyspnea, dyspnea on exertion, wheezing - Gastrointestinal Gastrointestinal: Present: diarrhea, nausea, vomiting. Absent: abdominal pain, constipation, hematemesis, hematochezia, melena - Genitourinary Genitourinary: Present: hematuria. Absent: dysuria - Musculoskeletal Musculoskeletal: Present: back pain, limited range of motion, muscle weakness - Neurological Neurological: Present: abnormal gait. Absent: confusion, dizziness, frequent falls, headache(s), syncope - Psychiatric Psychiatric: Absent: anxiety, depression - Hematologic/Lymphatic Hematologic/Lymphatic: Present: easy bleeding, easy bruising Medical,Surgical,& Family Hx - Medical History Cardio: History of: Hypertension Endocrine: History of: Diabetes Mellitus (IDDM) Rheumatology: History of;: Rheumatoid Arthritis Renal: History of: Renal Failure Genitourinary: History of: Problems (hematuria) - Surgical History Orthopedic Surgeries: Surgical HX of;: Orthopedic Surgery (left hand tendon release), Total Hip Replacement (RIGHT) - Family History Family History: Reports;: Family Diabetes, Family Hypertension Denies;: Family Cancer, Family Heart Disease - Social History Smoking Status: Former smoker (Quit 4-5 years ago) Have you smoked in the last 12 months: No Frequency of Alcohol Use: None Type of Drug Use: None Lives With:: Children Functional capacity: uses cane/walker Physical Examination Vital Signs Temp Pulse Resp BP Pulse Ox 98.7 F 70 18 151/80 99 03/11/17 14:34 03/11/17 14:34 03/11/17 14:34 03/11/17 14:34 03/11/17 14:34 General: Present: Appears Well, No Apparent Distress HEENT: Present: PERRL, Mucus Membranes Moist Neck: Present: Supple Neck, Midline Trachea, No Bruit Cardiac: Present: Reg Rate and Rhythm, No Murmur Lungs: Present: Normal Breath Sounds, No Wheeze, Rales, Rhonchi Neuro: Absent: Resting Tremor, Essential Tremor Abdomen: Present: Soft, Active Bowel Sounds, Non-Tender. Absent: Distended Skin: Absent: Rash, Suspicious Lesions Musculoskeletal: Present: Decreased Range of Motion, Pain in Joint Gait: Present: Poor Gait Extremities: Present: No Edema, Normal Upper Extr. Pulses, Normal Lower Extr. Pulses. Absent: Normal Gait Result/EKG - Labs CBC & BMP: 03/13/17 08:19 03/12/17 06:25 Lab Results: I have reviewed the past 24 hour labs Labs: Laboratory Results - last 24 hr 03/12/17 03/12/17 03/13/17 15:19 19:26 07:55 WBC RBC Hgb Hct MCV MCH MCHC RDW Plt Count MPV Neut % (Auto) Lymph % (Auto) [place] % (Auto) Eos % (Auto) Baso % (Auto) Neut # (Auto) Lymph # (Auto) [place] # (Auto) Eos # (Auto) Baso # (Auto) Immature Gran % Nucleated RBC % Immature Gran # Nucleated RBCs # Immature Plt Fraction POC Glucose 165 H 137 H 109 H Iron TIBC % Saturation Ferritin Hepatitis A IgM Ab Hep Bs Antigen Hep B Core IgM Ab Hepatitis C Antibody Blood Type Antibody Screen Crossmatch Blood Bank Comment 03/13/17 03/13/17 03/13/17 08:19 08:19 08:19 WBC 10.9 RBC 2.61 L Hgb 7.3 L Hct 22.2 L MCV 85.1 L MCH 28 MCHC 32.9 RDW 14.1 Plt Count 192 MPV 10.9 Neut % (Auto) 75.8 H Lymph % (Auto) 11.8 L [place] % (Auto) 11.0 Eos % (Auto) 0.5 Baso % (Auto) 0.5 Neut # (Auto) 8.3 H Lymph # (Auto) 1.3 L [place] # (Auto) 1.2 H Eos # (Auto) 0.1 Baso # (Auto) 0.1 Immature Gran % 0.4 Nucleated RBC % 0.0 Immature Gran # 0.04 Nucleated RBCs # 0.00 Immature Plt Fraction 0.0 POC Glucose Iron 14 L TIBC 158 L % Saturation 8.9 L Ferritin 385.1 H Hepatitis A IgM Ab Negative Hep Bs Antigen Negative Hep B Core IgM Ab Negative Hepatitis C Antibody Negative Blood Type Antibody Screen Crossmatch Blood Bank Comment 03/13/17 03/13/17 08:20 11:13 WBC RBC Hgb Hct MCV MCH MCHC RDW Plt Count MPV Neut % (Auto) Lymph % (Auto) [place] % (Auto) Eos % (Auto) Baso % (Auto) Neut # (Auto) Lymph # (Auto) [place] # (Auto) Eos # (Auto) Baso # (Auto) Immature Gran % Nucleated RBC % Immature Gran # Nucleated RBCs # Immature Plt Fraction POC Glucose 147 H Iron TIBC % Saturation Ferritin Hepatitis A IgM Ab Hep Bs Antigen Hep B Core IgM Ab Hepatitis C Antibody Blood Type Cancelled Antibody Screen Cancelled Crossmatch See Detail Blood Bank Comment Cancelled - EKG EKG results: interpreted by me EKG shows: atrial fibrillation Quality Measures - Stroke Symptom Onset Unknown: No I, Luis Vu MD, personally performed the services described in this documentation, ascribed by Nory Ibarra RN in my presence, and it is both accurate and complete [id number] .
[2017-03-14 06:38] LABS: Basophils # 0.1 10*3/uL (0.0-0.2); Basophils % 0.6 % (0.0-0.8); Eosinophils # 0.2 10*3/uL (0.0-0.87); Eosinophils % 2.1 % (0.00-10.9); Hematocrit 27.6 VOL% (35.7-47.0); Hemoglobin 9.2 GM/DL (12.0-16.0); Immature Granulocytes % 0.5 %; Immature Granulocytes Absolute 0.04 #; Lymphocytes # 1.4 10*3/uL (1.4-4.0); Lymphocytes % 16.8 % (21.3-54.2); Mean Corpuscular HGB Conc 33.3 GM/DL (32-36); Mean Corpuscular Hemoglobin 28 PG (27-34); Mean Corpuscular Volume 83.9 FL (87-102); Mean Platelet Volume 10.4 FL (9.6-12.0); Monocytes # 1.3 10*3/uL (0.11-0.8); Monocytes % 15.3 % (1.7-12.7); Neutrophils # 5.5 10*3/uL (1.4-7.4); Neutrophils % 64.7 % (38.7-73.9); Platelet Count 173 T/CUMM (130-400); Red Blood Count 3.29 MC/CUMM (3.8-5.5); Red Cell Distribution Width 13.8 % (9.3-17.3); White Blood Count 8.6 T/CUMM (4-12)
[2017-03-14] MEDS: INSULIN LISPRO 100 UNIT/ML SUBCUT SCH ×4 (08:50→22:02)
[2017-03-14] MEDS: OXYBUTYNIN XL 5 MG TABLET PO SCH (08:50)
[2017-03-14] MEDS: PANTOPRAZOLE 40 MG VIAL IV SCH (08:50)
[2017-03-14] MEDS: CARVEDILOL 6.25 MG TABLET PO SCH (08:50)
--- NOTE | 2017-03-14 09:10 | Urology Progress Note ---
Assessment and Plan (1) Gross hematuria Status: Acute Current Visit: Yes (2) Abnormal CT of the abdomen Status: Acute Assessment and plan: Hematuria is clearing. I am going to order an ultrasound to evaluate her kidneys. Difficult to tell with her CT because it is not a contrasted study. Has multiple cysts. No stones and no discrete masses. Current Visit: Yes Urology - PN: Subj Interval history: No further bleeding. I suspect this may be an error minute from some time. We will observe. If it continues then she probably needs ureteroscopy. Exam - Constitutional Vitals: Period Temp Pulse Resp BP Sys/Campos Pulse Ox Last 24 Hr 97.3 F-99.4 F 67-138 16-22 132-164/68-86 90-98 Results - Labs CBC & BMP: 03/14/17 06:21 03/12/17 06:25
--- NOTE | 2017-03-14 10:46 | ECHO Report ---
eMena Chavez Exam Date: 03/13/2017 12:41 Referring Physician: Technologist: Sandra Waldrop Age: 67 Ht (in): 67 Wt (lb): 177 Gender: F Exam [facility] Echo Indications: hematuria, anemia, renal disease, HTN, DM BP: 143 / 69 HR: 138 Rhythm: Atrial fibrillation Technical Quality: Good IMPRESSIONS Normal left ventricular cavity size. Severe concentric left ventricular hypertrophy with severe diastolic dysfunction. Left ventricular ejection fraction is estimated at 50-55%. Normal right ventricular size. Normal right atrial size. The left atrium is moderately enlarged. Mildly thickened mitral valve with mild mitral regurgitation. Mild aortic valve sclerosis without stenosis or regurgitation. Morphologically normal tricuspid valve. Trace tricuspid valve regurgitation. Tricuspid regurgitation velocities suggest a PAP of 32.5 mmHg + RAP. Morphologically normal pulmonic valve. Small pericardial effusion. Normal size aortic root and proximal ascending aorta. MEASUREMENTS (Male / Female) Normal Values 2D ECHO LV Diastolic Diameter PLAX 4.5 cm 4.2 - 5.9 / 3.9 - 5.3 cm LV Systolic Diameter PLAX 2.4 cm LV Fractional Shortening PLAX 47.5 % IVS Diastolic Thickness 2.2 cm 0.6 - 1.0 / 0.6 - 0.9 cm LVPW Diastolic Thickness 2.0 cm 0.6 - 1.0 / 0.6 - 0.9 cm Aortic Root Diameter 3.2 cm LA Systolic Diameter LX 4.8 cm 3.0 - 4.0 / 2.7 - 3.8 cm DOPPLER TR Peak Velocity 285.0 cm/s TR Peak Gradient 32.5 mmHg FINDINGS Left Ventricle Normal left ventricular cavity size. Severe concentric left ventricular hypertrophy with severe diastolic dysfunction. Left ventricular ejection fraction is estimated at 50-55%. Right Ventricle Normal right ventricular size. Right Atrium Normal right atrial size. Left Atrium The left atrium is moderately enlarged. Mitral Valve Mildly thickened mitral valve with mild mitral regurgitation. Aortic Valve Mild aortic valve sclerosis without stenosis or regurgitation. Tricuspid Valve Morphologically normal tricuspid valve. Trace tricuspid valve regurgitation. Tricuspid regurgitation velocities suggest a PAP of 32.5 mmHg + RAP. Pulmonic Valve Morphologically normal pulmonic valve. Pericardium Small pericardial effusion. Aorta Normal size aortic root and proximal ascending aorta. Luis Vu MD (Electronically Signed) Final Date: 14 March 2017 10:45
[2017-03-14] MEDS ORDERED: CARVEDILOL 25 MG TABLET PO SCH (12:00)
--- NOTE | 2017-03-14 13:05 | EKG Report ---
Stationary ECG Study [facility] Test Date: 03/14/2017 1:04:13 PM Pat Name: KARLEE DOUGLAS Department: Room: 529 Gender: F Rapier Insertion Loom Fixer: WILLIAM : 1950 Requested by: Crystal Cortez Order Number: [id number] Reading MD: DANIELA BRADY Intervals [place] Rate: 140 P: 999 GA: 0 QRS: 1 QRSD: 139 T: -31 QT: 281 QTc: 362 Interpretive Statements ATRIAL FLUTTER/TACHYCARDIA WITH RAPID VENTRICULAR RESPONSE INTRAVENTRICULAR CONDUCTION DELAY POSSIBLE ANTERIOR MYOCARDIAL INFARCTION, OF INDETERMINATE AGE Electronically Signed On 03-14-17 16:55:24 CDT by DANIELA BRADY [email or web address]
--- NOTE | 2017-03-14 13:35 | Cardiology Progress Note ---
Fred Nagel April RN, am scribing for, and in the presence of, Luis Vu MD 13:35. Assessment and Plan (1) Atrial fibrillation with RVR Status: Acute Assessment and plan: She is currently in sinus rhythm. Current Visit: Yes (2) Anemia Status: Acute Assessment and plan: She had an additional 2 units of packed red blood cells yesterday, H&H today is 9.2 and 27.6. Current Visit: Yes (3) Chronic renal disease, stage V Status: Chronic Assessment and plan: She started dialysis March 13, Dr. Escobar is following. Current Visit: Yes (4) Diabetes mellitus Status: Chronic Assessment and plan: Hospital medicine is managing. Current Visit: Yes (5) Hematuria Status: Acute Assessment and plan: Nephrology and urology are both following. She denies any further hematuria. Current Visit: Yes (6) Hypertension Status: Chronic Assessment and plan: Blood pressures were elevated on admission, they have improved over the last day or so. We will continue to monitor. Current Visit: Yes Cardiology - PN: Subj Interval history: Staff Climate Scientist: At [facility] (she has only been seen for preoperative evaluation) PCP: Dr. Garrett Kline at [facility] Forensic Artist: Dr. Escobar Summary: Ms. Chavez is a 67 year old female with a history of hypertension, chronic kidney disease, rheumatoid arthritis, and IDDM. She is a poor historian but she denies ever having any issues with her heart rhythm or ever having had stress test or heart catheterization. Ms. Chavez presented to the emergency department on March 11 with complaints of hematuria and low blood count per her primary doctor. She had undergone total hip replacement on February 14 and administered on Eliquis. EKG on admission showed sinus rhythm with heart rate of 79. H&H on admission was 6.5 and 20.2 she has been transfused 2 units of packed red blood cells. H&H today is slightly improved at 7.3 and 22.2. Creatinine has increased to 9.3 as of yesterday with a BUN of 81. She was dialyzed for the first time today. While at dialysis she was noted to have heart rates in the 130s and in EKG was done. It showed atrial fibrillation with a heart rate of 138. She denies any chest pain, shortness of breath, palpitations, or dizziness at the time. Initial visit March 13, 2017: I am seeing Ms. Chavez as she is back in her room after completing dialysis. She continues to deny any chest pain or shortness of breath. At the time her heart rate feels regular and her pulse is 80. We will place her on a respiratory care instructor. An echo has been ordered. We will review this. March 14, 2017: Ms. Chavez is very pleasant this morning without complaint. She has not noticed any further bleeding. She was transfused 2 units of packed red blood cells yesterday and her H&H has improved to 9.2 and 27.6. 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 This patient has gone and atrial flutter heart rate 140. We have upped her beta blockers or adding amiodarone. I am going to ask Dr. Cagle to see the patient and review for possible a flutter ablation. I have discussed in detail the particulars of this case and I have examined the patient and reviewed the patient's chart both current and old. I was directly involved in the patient's evaluation and management and I completely agree with Nory Ibarra RN regarding this patient's evaluation and treatment plan. Exam (Progress Note) - Constitutional Vitals: Period Temp Pulse Resp BP Sys/Campos Pulse Ox Last 24 Hr 97.3 F-99.4 F 67-138 16-22 132-164/68-86 90-98 Exam: General: Present: Appears Well, No Apparent Distress HEENT: Present: PERRL, Mucus Membranes Moist Neck: Present: Supple Neck, Midline Trachea, No Bruit Cardiac: Present: Reg Rate and Rhythm, No Murmur Lungs: Present: Normal Breath Sounds, No Wheeze, Rales, Rhonchi Neuro: Absent: Resting Tremor, Essential Tremor Abdomen: Present: Soft, Active Bowel Sounds, Non-Tender. Absent: Distended Skin: Absent: Rash, Suspicious Lesions Musculoskeletal: Present: Decreased Range of Motion, Pain in Joint Gait: Present: Poor Gait Extremities: Present: No Edema, Normal Upper Extr. Pulses, Normal Lower Extr. Pulses. Absent: Normal Gait Result/EKG - Labs CBC & BMP: 03/14/17 06:21 03/12/17 06:25 Lab Results: I have reviewed the past 24 hour labs Labs: Laboratory Results - last 24 hr 09/03/13/17 03/13/17 08:20 11:13 15:22 WBC RBC Hgb Hct MCV MCH MCHC RDW Plt Count MPV Neut % (Auto) Lymph % (Auto) [place] % (Auto) Eos % (Auto) Baso % (Auto) Neut # (Auto) Lymph # (Auto) [place] # (Auto) Eos # (Auto) Baso # (Auto) Immature Gran % Nucleated RBC % Immature Gran # Nucleated RBCs # Immature Plt Fraction POC Glucose 147 H 120 H Blood Type Cancelled Antibody Screen Cancelled Crossmatch See Detail Blood Bank Comment Cancelled 03/13/17 03/14/17 03/14/17 19:12 05:56 06:21 WBC 8.6 RBC 3.29 L D Hgb 9.2 L D Hct 27.6 L MCV 83.9 L MCH 28 MCHC 33.3 RDW 13.8 Plt Count 173 MPV 10.4 Neut % (Auto) 64.7 Lymph % (Auto) 16.8 L [place] % (Auto) 15.3 H Eos % (Auto) 2.1 Baso % (Auto) 0.6 Neut # (Auto) 5.5 Lymph # (Auto) 1.4 [place] # (Auto) 1.3 H Eos # (Auto) 0.2 Baso # (Auto) 0.1 Immature Gran % 0.5 Nucleated RBC % 0.0 Immature Gran # 0.04 Nucleated RBCs # 0.00 Immature Plt Fraction 0.0 POC Glucose 181 H 102 Blood Type Antibody Screen Crossmatch Blood Bank Comment - EKG EKG results: interpreted by me EKG shows: sinus rhythm Quality Measures - Stroke Symptom Onset Unknown: No I, Luis Vu MD, personally performed the services described in this documentation, ascribed by Nory Ibarra RN in my presence, and it is both accurate and complete [id number] .
[2017-03-14] MEDS: AMIODARONE 200 MG TABLET PO SCH ×2 (13:39→22:02)
--- NOTE | 2017-03-14 14:46 | Electrophysiology Consultation ---
History of Present Illness - Data of Consult Patient: new to practice Consult date: 03/14/17 Requesting Physician: Luis Vu - Consult Narrative Reason for consult: AFL/RVR History of present illness: Ms. Chavez is a 67 year old BF, w/PMHx hypertension, diabetes, ESRD ONHD, rheumatoid arthritis, recent right total hip replacement 02/14/17 sent home on Eliquis. She was admitted with anemia, hematuria, requiring transfusion. She developed typical atrial flutter, RVR, which is not symptomatic from her. Blood pressure is in normal range. She had no issues with dialysis earlier. Echo showed preserved ejection fraction, concentric LVH, left atrial enlargement. Currently, she is comfortable, anticoagulation was stopped. The heart rate still around 140 bpm, typical atrial flutter, 2-1 AV conduction, despite amiodarone 200 mg twice daily and Coreg 12.5 mg twice daily. CC: Crystal Cortez MD - Home Medications and Allergies Home Medications: Home Medications Medication Instructions Recorded Confirmed Type Amlodipine Besylate 1 tablet PO DAILY 03/11/17 03/11/17 History Apixaban [Eliquis] 1 tablet PO BID 03/11/17 03/11/17 History Carvedilol 1 tablet PO BID 03/11/17 03/11/17 History Furosemide Tab [Lasix Tab] 1 tablet PO DAILY 03/11/17 03/11/17 History Insulin Detemir [Levemir] 20 units SUBCUT BID 03/11/17 03/11/17 History Lisinopril/Hctz 20-25 [Prinzide 1 tablet PO DAILY 03/11/17 03/11/17 History 20-25] hydrOXYzine pamoate [Hydroxyzine 25 mg PO Q8HR PRN 03/11/17 03/11/17 History Pamoate] Allergies/Adverse Reactions: Allergies Allergy/AdvReac Type Severity Reaction Status Date / Time codeine Allergy Blurry Verified 03/11/17 14:39 Vision Medical,Surgical,& Family Hx - Medical History Cardio: History of: Hypertension Psychological: No history of: Anxiety Disorders, ADHD, Behavior Problems, Bipolar Disorder, Depression, Previous Suicide Attempt, Psychiatric/Substance Abuse Tx, Schizophrenia, Violent Behavior, Psychiatric Problems Endocrine: History of: Diabetes Mellitus (IDDM) Rheumatology: History of;: Rheumatoid Arthritis Renal: History of: Renal Failure Genitourinary: History of: Problems (hematuria) - Surgical History Abdominal Surgeries: Patient denies: Abdominal Surgery Orthopedic Surgeries: Surgical HX of;: Orthopedic Surgery (left hand tendon release), Total Hip Replacement (RIGHT) - Family History Family History: Reports;: Family Diabetes, Family Hypertension Denies;: Family Cancer, Family Heart Disease - Social History Smoking Status: Former smoker (Quit 4-5 years ago) Frequency of Alcohol Use: None Type of Drug Use: None 12 point system: reviewed and no additional remarkable complaints except as stated Exam - Constitutional Vitals: Period Temp Pulse Resp BP Sys/Campos Pulse Ox Last 24 Hr 97.1 F-99.4 F 67-140 16-22 131-164/68-89 90-98 General appearance: no acute distress, over weight - Head Head exam: Present: normal inspection. Absent: contusion, laceration - Eye Eye exam: Absent: conjunctival injection, scleral icterus Pupils: Present: normal accommodation - ENT ENT exam: Present: normal external ear exam - Neck Neck exam: Present: normal inspection. Absent: thyromegaly - Respiratory Respiratory exam: Present: clear to auscultation bilaterally. Absent: chest wall tenderness - Cardiovascular Cardiovascular exam: Present: regular rate and rhythm, systolic murmur, tachycardia - GI/Abdominal GI/Abdominal exam: Present: normal bowel sounds. Absent: distended - Extremities Exam Extremities exam: Present: normal inspection, normal capillary refill, edema (1+ ) - Neurological Exam Neurological exam: Present: alert, oriented X3 - Psychiatric Psychiatric exam: Present: normal affect, normal mood - Skin Skin exam: Present: normal color, warm. Absent: cyanosis Results - Labs CBC & BMP: 03/14/17 06:21 03/12/17 06:25 Lab Results: I have reviewed the past 24 hour labs Assessment and Plan (1) Atrial flutter Status: Acute Assessment and plan: 67-year-old black female, with asymptomatic typical atrial flutter/RVR, end- stage renal disease on hemodialysis, anemia due to hematuria, status post transfusion, rheumatoid arthritis, recent hip surgery. -Although she is not symptomatic at rest from her arrhythmia, the heart rate is profoundly high, she is at risk for tachycardia induced cardiomyopathy and this was also likely make dialysis more difficult. We discussed options for rate/ rhythm control. She is not a candidate for anticoagulation at this time. -Increase Coreg to 25 mg twice daily. Start Cardizem CD 120 mg daily. Continue amiodarone 400 mg twice daily. -If we can achieve reasonable rate control, we may opt for continued medical management. If she remains very tachycardic, she could be a candidate for ablation. In this case, I will get a JEAN first, to rule out existing clots, as she is not a candidate to start anticoagulation. -Keep on telemetry Current Visit: Yes Quality Measures - Stroke Symptom Onset Unknown: No
--- NOTE | 2017-03-14 15:29 | Nephrology Progress Note ---
Nephrology - PN: Subj Interval history: Patient feels better today. She denies shortness of breath. Review of systems GI she denies nausea vomiting Physical exam general the patient is in no acute distress Assessment/plan 1. End-stage renal disease-we will plan on hemodialysis tomorrow for 2-1/2 hours 2. Hematuria-patient states she had some more hematuria today, she is to get a renal ultrasound to further evaluate her kidney lesions, at this point she could have a contrasted CT if needed as she has been started on dialysis this admission 3. Diabetes mellitus 4. Hypertension 5. Atrial flutter-patient's been started on rate controlling medication. Exam (PN)-Nephrology - Vital Signs Vital signs: Period Temp Pulse Resp BP Sys/Campos Pulse Ox Last 24 Hr 97.1 F-99.4 F 67-140 16-22 131-164/68-89 90-98 - Lab 03/14/17 06:21 03/12/17 06:25 Most recent lab results Calcium 9.0 MG/DL (8.5-10.1) 03/12/17 06:25 Magnesium 2.7 MG/DL (1.8-2.4) H 03/12/17 06:25 Assessment and Plan (1) Chronic renal disease, stage V Status: Chronic Assessment and plan: This patient's creatinine as an outpatient about a month or so ago was around 8 mg/dL after her hip surgery at increased around 9 mg/dL, her kidney function remained stable her chemistries look okay she is having some nausea and vomiting however think this may be related to her acute illness. She does have a fistula in her left arm and it would be easy to start her on dialysis if necessary. However at this time I think the patient remains asymptomatic enough that we can continue to monitor her kidney function without dialysis for right now. Current Visit: Yes (2) Blood loss anemia Status: Acute Current Visit: Yes (3) Diabetes mellitus Status: Chronic Current Visit: Yes (4) Hematuria Status: Acute Current Visit: Yes (5) Hypertension Status: Chronic Current Visit: Yes
[2017-03-14] MEDS: DILTIAZEM CD 120 MG CAPSULE PO SCH (16:12)
--- NOTE | 2017-03-14 16:39 | Hospitalist Progress Note ---
Hospitalist: Subjective Interval history: Patient still has some gross hematuria. Exam - Constitutional Vitals: Period Temp Pulse Resp BP Sys/Campos Pulse Ox Last 24 Hr 97.1 F-99.4 F 67-140 16-22 131-158/68-89 90-98 Exam: General: No Acute Distress HEENT: Normocephalic, atraumatic, Extra ocular movements intact Neck: Supple, No JVD Chest: Clear to auscultation B/L CV: S1 + S2 audible without murmur, gallop or rub Abd: soft, NT, Non-distended, BS + Ext: No edema Skin: No purpura, bruising or rash Rheumatologic: No Joint deformities Neurologic: Awake and alert Results - Labs CBC & BMP: 03/14/17 06:21 03/12/17 06:25 - Impressions Assessment and Plan: Gross hematuria Status: Acute Current Visit: Yes This is improving. CT abdomen pelvis without contrast showed a possible right upper pole hematoma. We will follow up on ultrasound of the kidneys. Anemia of genitourinary blood loss Status: Acute Current Visit: Yes Hematocrit is much better after blood transfusion Paroxysmal atrial fibrillation with RVR Status: Acute Assessment and plan: This is new onset, heart rate was in 130s. She was on Eliquis and this has been on hold because of hematuria and anemia. Continue Coreg. Has been started on amiodarone by cardiology 03/14. Monitor for response Current Visit: Yes Chronic renal disease, stage V/ESRD Status: Acute Assessment and plan: She has been started on hemodialysis this admission Current Visit: Yes Ess Hypertension Status: Acute Current Visit: Yes Diabetes mellitus-2 Status: Acute Current Visit: Yes Quality Measures - Stroke Symptom Onset Unknown: No
[2017-03-14] MEDS ORDERED: CARVEDILOL 12.5 MG TABLET PO SCH (21:00)
[2017-03-14] MEDS: CARVEDILOL 25 MG TABLET PO SCH (22:02)
[2017-03-15] MEDS: MORPHINE 2 MG/1 ML SYRINGE IV PRN (02:25)
--- NOTE | 2017-03-15 09:24 | Dialysis Note ---
Dialysis Note - Dialysis Note Patient is seen on dialysis. She is tolerating the procedure. Blood pressure is 153/72. Cardiovascular regular rate. Lungs clear to auscultation. Abdomen is soft.
--- NOTE | 2017-03-15 10:16 | EKG Report ---
Stationary ECG Study [facility] Test Date: 03/15/2017 10:17:32 AM Pat Name: KARLEE DOUGLAS Department: Room: 529 Gender: F Tack Picker: WILLIAM : [id number] Requested by: Rl Cagle Order Number: [id number] Travis MD: DANIELA BRADY Intervals [place] Rate: 62 P: -13 UT: 120 QRS: -6 QRSD: 90 T: 71 QT: 432 QTc: 436 Interpretive Statements SINUS RHYTHM POSSIBLE ANTERIOR MYOCARDIAL INFARCTION, OF INDETERMINATE AGE Electronically Signed On 03-15-17 17:11:02 CDT by DANIELA BRADY [email or web address]
[2017-03-15] MEDS: INSULIN LISPRO 100 UNIT/ML SUBCUT SCH ×4 (10:22→20:49)
--- NOTE | 2017-03-15 10:26 | Nephrology Progress Note ---
Nephrology - PN: Subj Interval history: Patient was seen in hemodialysis, she was dialyzing earlier however her flow in the upper needle became tenuous and her dialysis was stopped she is to be re- stuck for further hemodialysis today. Patient denies shortness of breath. Review of systems GI she denies nausea or vomiting, musculoskeletal-the patient complained of some pain under her right breast that appeared just while I was talking to her. Physical exam general the patient's in no acute distress, palpation of her right lower chest area was unremarkable, there was no abnormality or tenderness to my palpation Assessment/plan 1. End-stage renal disease-we will continue hemodialysis support, patient is a new start on dialysis 2. Hematuria-patient states she continues to have blood in her urine, CT scan of the kidney showed some cysts with one that look like it might have some bleeding, management per urology. 3. Diabetes mellitus this is controlled 4. Hypertension this is controlled Exam (PN)-Nephrology - Vital Signs Vital signs: Period Temp Pulse Resp BP Sys/Campos Pulse Ox Last 24 Hr 97.0 F-99.4 F 66-140 16-21 123-152/62-89 90-94 - Lab 03/14/17 06:21 03/12/17 06:25 Most recent lab results Calcium 9.0 MG/DL (8.5-10.1) 03/12/17 06:25 Magnesium 2.7 MG/DL (1.8-2.4) H 03/12/17 06:25 Assessment and Plan (1) Chronic renal disease, stage V Status: Chronic Assessment and plan: This patient's creatinine as an outpatient about a month or so ago was around 8 mg/dL after her hip surgery at increased around 9 mg/dL, her kidney function remained stable her chemistries look okay she is having some nausea and vomiting however think this may be related to her acute illness. She does have a fistula in her left arm and it would be easy to start her on dialysis if necessary. However at this time I think the patient remains asymptomatic enough that we can continue to monitor her kidney function without dialysis for right now. Current Visit: Yes (2) Blood loss anemia Status: Acute Current Visit: Yes (3) Diabetes mellitus Status: Chronic Current Visit: Yes (4) Hematuria Status: Acute Current Visit: Yes (5) Hypertension Status: Chronic Current Visit: Yes
[2017-03-15] MEDS: PANTOPRAZOLE 40 MG VIAL IV SCH (15:11)
[2017-03-15] MEDS: AMIODARONE 200 MG TABLET PO SCH ×2 (15:11→20:50)
[2017-03-15] MEDS: OXYBUTYNIN XL 5 MG TABLET PO SCH (15:11)
[2017-03-15] MEDS: DILTIAZEM CD 120 MG CAPSULE PO SCH (15:11)
[2017-03-15] MEDS: CARVEDILOL 25 MG TABLET PO SCH ×2 (15:11→20:50)
--- NOTE | 2017-03-15 15:48 | Hospitalist Progress Note ---
Hospitalist: Subjective Interval history: [place] female in the hospital for hematuria and A. fib with RVR. She reportedly has some hematuria during the night. Exam - Constitutional Vitals: Period Temp Pulse Resp BP Sys/Campos Pulse Ox Last 24 Hr 97.0 F-98.8 F 63-130 17-21 123-163/62-75 90-95 Exam: General: No Acute Distress HEENT: Normocephalic, atraumatic, Extra ocular movements intact Neck: Supple, No JVD Chest: Clear to auscultation B/L CV: S1 + S2 audible without murmur, gallop or rub Abd: soft, NT, Non-distended, BS + Ext: No edema Skin: No purpura, bruising or rash Rheumatologic: No Joint deformities Neurologic: Awake and alert Results - Labs CBC & BMP: 03/14/17 06:21 03/12/17 06:25 - Impressions Assessment and Plan: Gross hematuria Status: Acute Current Visit: Yes This is improving. CT abdomen pelvis without contrast showed a possible right upper pole hematoma. No renal mass on ultrasound kidneys. Repeat a CBC in the morning Anemia of genitourinary blood loss Status: Acute Current Visit: Yes Hematocrit is much better after blood transfusion Paroxysmal atrial fibrillation with RVR Status: Acute Assessment and plan: She is now in NSR. She was on Eliquis and this has been on hold because of hematuria and anemia. Continue Coreg, Cardizem and amiodarone. Current Visit: Yes Chronic renal disease, stage V/ESRD Status: Acute Assessment and plan: She has been started on hemodialysis this admission Current Visit: Yes Ess Hypertension Status: Acute Current Visit: Yes Diabetes mellitus-2 Status: Acute Current Visit: Yes Quality Measures - Stroke Symptom Onset Unknown: No
--- NOTE | 2017-03-15 16:14 | Cardiology Progress Note ---
Fred Nagel April, RN, am scribing for, and in the presence of, Luis Vu MD 16:14. Assessment and Plan (1) Atrial fibrillation with RVR Status: Acute Assessment and plan: She is currently in sinus rhythm. Current Visit: Yes (2) Anemia Status: Acute Current Visit: Yes (3) Chronic renal disease, stage V Status: Chronic Assessment and plan: She started dialysis March 13, Dr. Escobar is following. Current Visit: Yes (4) Diabetes mellitus Status: Chronic Assessment and plan: Hospital medicine is managing. Current Visit: Yes (5) Hematuria Status: Acute Assessment and plan: Nephrology and urology are both following. Reports having some hematuria during the night. Current Visit: Yes (6) Hypertension Status: Chronic Assessment and plan: Blood pressures were elevated on admission, they have improved over the last day or so. We will continue to monitor. Current Visit: Yes (7) Atrial flutter with rapid ventricular response Status: Acute Assessment and plan: He had an episode of atrial flutter with RVR yesterday. She was started on amiodarone [address] twice daily[address] Dr[address] Cagle saw her in electrophysiology consultation, he increase carvedilol to 25 mg twice daily and added diltiazem 120 mg p.o. daily. She converted to sinus rhythm yesterday afternoon, this morning she is in sinus rhythm with heart rates in the 70s. Current Visit: Yes Cardiology - PN: Subj Interval history: Agricultural Service Worker: At [place] (she has only been seen for preoperative evaluation) PCP: Dr. Garrett Kline at [facility] [employer] T[employer]or Apprentice: Dr. Escobar Summary: Ms. Chavez is a 67 year old female with a history of hypertension, chronic kidney disease, rheumatoid arthritis, and IDDM. She is a poor historian but she denies ever having any issues with her heart rhythm or ever having had stress test or heart catheterization. Ms. Chavez presented to the emergency department on March 11 with complaints of hematuria and low blood count per her primary doctor. She had undergone total hip replacement on February 14 and administered on Eliquis. EKG on admission showed sinus rhythm with heart rate of 79. H&H on admission was 6.5 and 20.2 she has been transfused 2 units of packed red blood cells. H&H today is slightly improved at 7.3 and 22.2. Creatinine has increased to 9.3 as of yesterday with a BUN of 81. She was dialyzed for the first time today. While at dialysis she was noted to have heart rates in the 130s and in EKG was done. It showed atrial fibrillation with a heart rate of 138. She denies any chest pain, shortness of breath, palpitations, or dizziness at the time. Initial visit March 13, 2017: I am seeing Ms. Chavez as she is back in her room after completing dialysis. She continues to deny any chest pain or shortness of breath. At the time her heart rate feels regular and her pulse is 80. We will place her on a monitor and storage bin tender. An echo has been ordered. We will review this. March 14, 2017: Ms. Chavez is very pleasant this morning without complaint. She has not noticed any further bleeding. She was transfused 2 units of packed red blood cells yesterday and her H&H has improved to 9.2 and 27.6. child monitor currently shows sinus rhythm with heart rates in the 70s. This patient has gone into atrial flutter heart rate 140. We have upped her beta blockers and are adding amiodarone. I am going to ask Dr. Cagle to see the patient and review for possible a flutter ablation. March 15, 2017: Ms. Chavez is seen resting in bed. She denies any chest pain, shortness of breath, palpitations, or dizziness. She converted back to sinus rhythm yesterday afternoon. She is currently in sinus rhythm with heart rates in the 70s. She reports that she was asymptomatic when her heart rate was elevated yesterday. She said she did have some hematuria during the night. I appreciate Dr. Jerome's assistance. She is much improved. She feels comfortable on her current medications. Hopefully we can get her set for discharge I have discussed in detail the particulars of this case and I have examined the patient and reviewed the patient's chart both current and old. I was directly involved in the patient's evaluation and management and I completely agree with Nory Ibarra RN regarding this patient's evaluation and treatment plan. Exam (Progress Note) - Constitutional Vitals: Period Temp Pulse Resp BP Sys/Campos Pulse Ox Last 24 Hr 97.0 F-99.4 F 66-140 16-21 123-152/62-89 90-94 Exam: General: Present: Appears Well, No Apparent Distress HEENT: Present: PERRL, Mucus Membranes Moist Neck: Present: Supple Neck, Midline Trachea, No Bruit Cardiac: Present: Reg Rate and Rhythm, No Murmur Lungs: Present: Normal Breath Sounds, No Wheeze, Rales, Rhonchi Neuro: Absent: Resting Tremor, Essential Tremor Abdomen: Present: Soft, Active Bowel Sounds, Non-Tender. Absent: Distended Skin: Absent: Rash, Suspicious Lesions Musculoskeletal: Present: Decreased Range of Motion, Pain in Joint Gait: Present: Poor Gait Extremities: Present: No Edema, Normal Upper Extr. Pulses, Normal Lower Extr. Pulses. Absent: Normal Gait Result/EKG - Labs CBC & BMP: 03/14/17 06:21 03/12/17 06:25 Lab Results: I have reviewed the past 24 hour labs Labs: Laboratory Results - last 24 hr 03/12/17 03/14/17 03/14/17 06:27 12:01 15:33 POC Glucose 160 H 140 H Transferrin 167 L 03/14/17 03/15/17 21:49 07:10 POC Glucose 205 H 112 H Transferrin - EKG EKG results: interpreted by me EKG shows: sinus rhythm Quality Measures - Stroke Symptom Onset Unknown: No I, Luis Vu MD, personally performed the services described in this documentation, ascribed by Nory Ibarra RN in my presence, and it is both accurate and complete 614 .
--- NOTE | 2017-03-15 18:30 | Electrophysiology Progress Not ---
Assessment and Plan (1) Atrial flutter Status: Acute Assessment and plan: 67-year-old black female, with asymptomatic typical atrial flutter/RVR, end- stage renal disease on hemodialysis, anemia due to hematuria, status post transfusion, rheumatoid arthritis, recent hip surgery. -Converted back to sinus rhythm. -Continue p.o. amiodarone load, I recommend 400 mg p.o. twice daily for 1 week, then 200 mg daily. -Continue Coreg 25 mg twice daily, Cardizem CD 120 mg daily. -If the arrhythmia recurs, ablation is an option - typical AFL -She is not a candidate for anticoagulation I will sign off, please call with further questions Current Visit: Yes Electrophysiology Subjective Interval history: She converted back to sinus rhythm. No significant conversion pause. Had atrial flutter and atrial fibrillation. Exam - Constitutional Vitals: Period Temp Pulse Resp BP Sys/Campos Pulse Ox Last 24 Hr 97.0 F-98.8 F 63-71 17-21 123-163/62-79 90-98 General appearance: no acute distress, over weight - Head Head exam: Present: normal inspection, normocephalic. Absent: contusion - Eye Eye exam: Absent: scleral icterus, laceration to eyelids Pupils: Absent: dilated - ENT ENT exam: Present: normal external ear exam - Neck Neck exam: Present: normal inspection. Absent: thyromegaly - Respiratory Respiratory exam: Present: clear to auscultation bilaterally. Absent: chest wall tenderness - Cardiovascular Cardiovascular exam: Present: regular rate and rhythm, systolic murmur. Absent : JVD - GI/Abdominal GI/Abdominal exam: Present: normal bowel sounds. Absent: distended - Extremities Exam Extremities exam: Present: normal inspection, normal capillary refill. Absent: edema - Neurological Exam Neurological exam: Present: alert, oriented X3 - Psychiatric Psychiatric exam: Present: normal affect, normal mood - Skin Skin exam: Present: normal color, warm. Absent: cyanosis Results - Labs CBC & BMP: 03/14/17 06:21 03/12/17 06:25 Lab Results: I have reviewed the past 24 hour labs Quality Measures - Stroke Symptom Onset Unknown: No
[2017-03-16 06:25] LABS: Basophils % 0.4 % (0.0-0.8); Eosinophils # 0.3 10*3/uL (0.0-0.87); Eosinophils % 3.5 % (0.00-10.9); Immature Granulocytes % 0.7 %; Immature Granulocytes Absolute 0.05 #; Lymphocytes # 1.5 10*3/uL (1.4-4.0); Lymphocytes % 19.9 % (21.3-54.2); Mean Corpuscular HGB Conc 33.3 GM/DL (32-36); Mean Corpuscular Hemoglobin 28 PG (27-34); Mean Corpuscular Volume 83.6 FL (87-102); Mean Platelet Volume 10.5 FL (9.6-12.0); Monocytes # 1.2 10*3/uL (0.11-0.8); Monocytes % 15.8 % (1.7-12.7); Neutrophils # 4.5 10*3/uL (1.4-7.4); Neutrophils % 59.7 % (38.7-73.9); Platelet Count 206 T/CUMM (130-400); Red Blood Count 3.23 MC/CUMM (3.8-5.5); Red Cell Distribution Width 13.2 % (9.3-17.3); White Blood Count 7.5 T/CUMM (4-12)
[2017-03-16 08:15] LABS: Eosinophils 5 % (0-10); Hypochromasia 1+; Lymphocytes 20 % (20-55); Platelet Estimate Adequate; Segmented Neutrophils 67 % (50-85); Total Cells Counted 100
--- NOTE | 2017-03-16 08:37 | Cardiology Progress Note ---
Assessment and Plan (1) Atrial fibrillation with RVR Status: Acute Assessment and plan: She is currently in sinus rhythm. Current Visit: Yes (2) Anemia Status: Acute Assessment and plan: She had an additional 2 units of packed red blood cells yesterday, H&H today is 9.2 and 27.6. Current Visit: Yes (3) Chronic renal disease, stage V Status: Chronic Assessment and plan: She started dialysis March 13, Dr. Escobar is following. Current Visit: Yes (4) Diabetes mellitus Status: Chronic Assessment and plan: Hospital medicine is managing. Current Visit: Yes (5) Hematuria Status: Acute Assessment and plan: Nephrology and urology are both following. Reports having some hematuria during the night. Current Visit: Yes (6) Hypertension Status: Chronic Assessment and plan: Blood pressures were elevated on admission, they have improved over the last day or so. We will continue to monitor. Current Visit: Yes (7) Atrial flutter with rapid ventricular response Status: Acute Assessment and plan: He had an episode of atrial flutter with RVR yesterday. She was started on amiodarone [address] twice daily. Dr[address] Cagle saw her in electrophysiology consultation, he increase carvedilol to 25 mg twice daily and added diltiazem 120 mg p.o. daily. She converted to sinus rhythm yesterday afternoon, this morning she is in sinus rhythm with heart rates in the 70s. Current Visit: Yes Cardiology - PN: Subj Interval history: Summary: Ms. Chavez is a 67 year old female with a history of hypertension, chronic kidney disease, rheumatoid arthritis, and IDDM. She is a poor historian but she denies ever having any issues with her heart rhythm or ever having had stress test or heart catheterization. Ms. Chavez presented to the emergency department on March 11 with complaints of hematuria and low blood count per her primary doctor. She had undergone total hip replacement on February 14 and administered on Eliquis. EKG on admission showed sinus rhythm with heart rate of 79. H&H on admission was 6.5 and 20.2 she has been transfused 2 units of packed red blood cells. H&H today is slightly improved at 7.3 and 22.2. Creatinine has increased to 9.3 as of yesterday with a BUN of 81. She was dialyzed for the first time today. While at dialysis she was noted to have heart rates in the 130s and in EKG was done. It showed atrial fibrillation with a heart rate of 138. She denies any chest pain, shortness of breath, palpitations, or dizziness at the time. Initial visit March 13, 2017: I am seeing Ms. Chavez as she is back in her room after completing dialysis. She continues to deny any chest pain or shortness of breath. At the time her heart rate feels regular and her pulse is 80. We will place her on a wardrobe custodian. An echo has been ordered. We will review this. March 14, 2017: Ms. Chavez is very pleasant this morning without complaint. She has not noticed any further bleeding. She was transfused 2 units of packed red blood cells yesterday and her H&H has improved to 9.2 and 27.6. bricklayer tender currently shows sinus rhythm with heart rates in the 70s. This patient has gone into atrial flutter heart rate 140. We have upped her beta blockers and are adding amiodarone. I am going to ask Dr. Cagle to see the patient and review for possible a flutter ablation. March 15, 2017: Ms. Chavez is seen resting in bed. She denies any chest pain, shortness of breath, palpitations, or dizziness. She converted back to sinus rhythm yesterday afternoon. She is currently in sinus rhythm with heart rates in the 70s. She reports that she was asymptomatic when her heart rate was elevated yesterday. She said she did have some hematuria during the night. I appreciate Dr. Jerome's assistance. She is much improved. She feels comfortable on her current medications. Hopefully we can get her set for discharge I have discussed in detail the particulars of this case and I have examined the patient and reviewed the patient's chart both current and old. I was directly involved in the patient's evaluation and management and I completely agree with Nory Ibarra RN regarding this patient's evaluation and treatment plan. March 16/2017: Patient is doing well with sinus rhythm. I think she can be discharged today. We will set her up to see us in 2 weeks and have follow-up with Dr. Jerome as well in 1 month. She should be discharged on her current medications. Exam (Progress Note) - Constitutional Vitals: Period Temp Pulse Resp BP Sys/Campos Pulse Ox Last 24 Hr 97.5 F-98.8 F 59-71 18-18 131-178/59-79 93-98 Exam: General: Present: Appears Well, No Apparent Distress HEENT: Present: PERRL, Mucus Membranes Moist Neck: Present: Supple Neck, Midline Trachea, No Bruit Cardiac: Present: Reg Rate and Rhythm, No Murmur Lungs: Present: Normal Breath Sounds, No Wheeze, Rales, Rhonchi Neuro: Absent: Resting Tremor, Essential Tremor Abdomen: Present: Soft, Active Bowel Sounds, Non-Tender. Absent: Distended Skin: Absent: Rash, Suspicious Lesions Musculoskeletal: Present: Decreased Range of Motion, Pain in Joint Gait: Present: Poor Gait Extremities: Present: No Edema, Normal Upper Extr. Pulses, Normal Lower Extr. Pulses. Absent: Normal Gait Result/EKG - Labs CBC & BMP: 03/16/17 05:59 03/12/17 06:25 Labs: Laboratory Results - last 24 hr 03/15/17 03/15/17 03/15/17 10:48 15:37 19:13 WBC RBC Hgb Hct MCV MCH MCHC RDW Plt Count MPV Neut % (Auto) Lymph % (Auto) Baxter % (Auto) Eos % (Auto) Baso % (Auto) Neut # (Auto) Lymph # (Auto) Baxter # (Auto) Eos # (Auto) Baso # (Auto) Total Counted Immature Gran % Nucleated RBC % Immature Gran # Segmented Neutrophils Lymphocytes Monocytes Eosinophils Nucleated RBCs # Platelet Estimate Immature Plt Fraction Hypochromasia POC Glucose 158 H 175 H 194 H 03/16/17 05:59 WBC 7.5 RBC 3.23 L Hgb 9.0 L Hct 27.0 L MCV 83.6 L MCH 28 MCHC 33.3 RDW 13.2 Plt Count 206 MPV 10.5 Neut % (Auto) 59.7 Lymph % (Auto) 19.9 L Baxter % (Auto) 15.8 H Eos % (Auto) 3.5 Baso % (Auto) 0.4 Neut # (Auto) 4.5 Lymph # (Auto) 1.5 Baxter # (Auto) 1.2 H Eos # (Auto) 0.3 Baso # (Auto) 0.0 Total Counted 100 Immature Gran % 0.7 Nucleated RBC % 0.0 Immature Gran # 0.05 Segmented Neutrophils 67 Lymphocytes 20 Monocytes 8 Eosinophils 5 Nucleated RBCs # 0.00 Platelet Estimate Adequate Immature Plt Fraction 0.0 Hypochromasia 1+ POC Glucose Quality Measures - Stroke Symptom Onset Unknown: No
[2017-03-16] MEDS: OXYBUTYNIN XL 5 MG TABLET PO SCH (09:39)
[2017-03-16] MEDS: CARVEDILOL 25 MG TABLET PO SCH ×2 (09:42→20:23)
[2017-03-16] MEDS: DILTIAZEM CD 120 MG CAPSULE PO SCH (09:42)
[2017-03-16] MEDS: AMIODARONE 200 MG TABLET PO SCH ×2 (09:42→20:23)
[2017-03-16] MEDS: INSULIN LISPRO 100 UNIT/ML SUBCUT SCH ×4 (09:43→20:23)
[2017-03-16] MEDS: PANTOPRAZOLE 40 MG VIAL IV SCH (10:21)
--- NOTE | 2017-03-16 11:56 | Urology Progress Note ---
Assessment and Plan (1) Gross hematuria Status: Acute Current Visit: Yes (2) Abnormal CT of the abdomen Status: Acute Assessment and plan: Hematuria is clearing. I am going to order an ultrasound to evaluate her kidneys. Difficult to tell with her CT because it is not a contrasted study. Has multiple cysts. No stones and no discrete masses. Current Visit: Yes Urology - PN: Subj Interval history: Patient continues to have an omental bleeding. This has picked up since she started dialysis. I suspect it is related to the little bit of heparin she gets when she dialyzes. Unfortunately, to ureteroscope her we needed as clear as it can be. Because any bleeding will just impede the visualization and we will not be able see anything. Exam - Constitutional Vitals: Period Temp Pulse Resp BP Sys/Campos Pulse Ox Last 24 Hr 97.5 F-99.0 F 59-71 18-18 131-183/59-79 93-98 Results - Labs CBC & BMP: 03/16/17 05:59 03/12/17 06:25
--- NOTE | 2017-03-16 12:11 | Nephrology Progress Note ---
Nephrology - PN: Subj Interval history: Ms. Chavez is seen in follow-up of her end-stage renal disease. She will dialyze again on Saturday. She continues to report hematuria she has bilateral cystic kidneys and was found to have blood in the collecting system of the right kidney on CT. Dr. Orozco is following and plans further intervention. Exam (PN)-Nephrology - Vital Signs Vital signs: Period Temp Pulse Resp BP Sys/Campos Pulse Ox Last 24 Hr 97.5 F-99.0 F 59-71 18-18 131-183/59-79 93-98 - Lab 03/16/17 05:59 03/12/17 06:25 Most recent lab results Calcium 9.0 MG/DL (8.5-10.1) 03/12/17 06:25 Magnesium 2.7 MG/DL (1.8-2.4) H 03/12/17 06:25
[2017-03-16] MEDS ORDERED: BISACODYL 5 MG TABLET PO ONE (13:24)
[2017-03-16] MEDS ORDERED: BISACODYL 5 MG TABLET PO PRN (13:24)
--- NOTE | 2017-03-16 14:16 | Hospitalist Progress Note ---
Assessment and Plan (1) Hematuria Status: Acute Assessment and plan: In the process of resolving. Patient is able to urinate in the bathroom with pink tinged urine. Urology is on the case. Current Visit: Yes Qualifiers: Hematuria type: gross Qualified Code(s): R31.0 - Gross hematuria (2) Anemia Status: Acute Assessment and plan: This is anemia of chronic disease given chronic kidney injury. Current Visit: Yes Qualifiers: Anemia type: due to chronic kidney disease Chronic kidney disease stage: stage 5, not on chronic dialysis Qualified Code(s): N18.5 - Chronic kidney disease, stage 5; D63.1 - Anemia in chronic kidney disease (3) Chronic renal disease, stage V Status: Chronic Assessment and plan: Nephrology is following. Current Visit: Yes Hospitalist: Subjective Interval history: Patient has been seen interviewed and examined and chart has been reviewed. The hospital with acute onset of hematuria. She does have bilateral renal cysts. Possible she bled in 1 of these kidney cysts. She denies any abdominal pain. Urology is on the case architectural draftsman on the case. 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 Exam - Constitutional Vitals: Period Temp Pulse Resp BP Sys/Campos Pulse Ox Last 24 Hr 97.5 F-99.0 F 59-71 18-18 131-183/59-79 93-98 General appearance: over weight - Head Head exam: Present: normocephalic - Eye Eye exam: Present: EOMI Pupils: Present: AYAAN - ENT ENT exam: Present: normal exam - Neck Neck exam: Present: normal inspection - Respiratory Respiratory exam: Present: clear to auscultation bilaterally - Cardiovascular Cardiovascular exam: Present: regular rate and rhythm - GI/Abdominal GI/Abdominal exam: Present: normal bowel sounds, soft - Extremities Exam Extremities exam: Present: full ROM - Back Exam Back exam: Present: normal inspection - Neurological Exam Neurological exam: Present: alert, oriented X3, CN II-XII intact - Psychiatric Psychiatric exam: Present: normal affect, normal mood - Skin Skin exam: Present: normal color, warm, dry Results - Labs CBC & BMP: 03/16/17 05:59 03/12/17 06:25 Lab Results: I have reviewed the past 24 hour labs Quality Measures - Stroke Symptom Onset Unknown: No
[2017-03-17] MEDS: INSULIN LISPRO 100 UNIT/ML SUBCUT SCH ×4 (09:29→20:41)
--- NOTE | 2017-03-17 09:37 | Nephrology Progress Note ---
Nephrology - PN: Subj Interval history: Ms. Chavez is seen in follow-up of her end-stage renal disease. She is stable and doing well. She sitting at the bedside with a clear chest and not short of breath. She says her urine is not quite as dark as it has been. She will be dialyzed tomorrow. Exam (PN)-Nephrology - Vital Signs Vital signs: Period Temp Pulse Resp BP Sys/Campos Pulse Ox Last 24 Hr 97.3 F-98.9 F 60-63 16-20 105-183/57-80 95-97 - Lab 03/16/17 05:59 03/12/17 06:25 Most recent lab results Calcium 9.0 MG/DL (8.5-10.1) 03/12/17 06:25 Magnesium 2.7 MG/DL (1.8-2.4) H 03/12/17 06:25 Specialty Discharge - Follow Up or Referrals Follow up with: Rl Cagle MD [Physician] - 1 Month Luis Vu MD [Physician] - 2 Weeks
[2017-03-17] MEDS: PANTOPRAZOLE 40 MG VIAL IV SCH (09:45)
[2017-03-17] MEDS: DILTIAZEM CD 120 MG CAPSULE PO SCH (09:45)
[2017-03-17] MEDS: OXYBUTYNIN XL 5 MG TABLET PO SCH (09:45)
[2017-03-17] MEDS: CARVEDILOL 25 MG TABLET PO SCH ×2 (09:46→20:41)
[2017-03-17] MEDS: AMIODARONE 200 MG TABLET PO SCH ×2 (09:46→20:40)
--- NOTE | 2017-03-17 12:21 | Hospitalist Progress Note ---
Assessment and Plan (1) Hematuria Status: Acute Assessment and plan: In the process of resolving. Patient is able to urinate in the bathroom with pink tinged urine. Urology is on the case. It may be procedure coming up tomorrow since urine seem to be creating. Current Visit: Yes Qualifiers: Hematuria type: gross Qualified Code(s): R31.0 - Gross hematuria (2) Anemia Status: Acute Assessment and plan: This is anemia of chronic disease given chronic kidney injury. Current Visit: Yes Qualifiers: Anemia type: due to chronic kidney disease Chronic kidney disease stage: stage 5, not on chronic dialysis Qualified Code(s): N18.5 - Chronic kidney disease, stage 5; D63.1 - Anemia in chronic kidney disease (3) Chronic renal disease, stage V Status: Chronic Assessment and plan: Nephrology is following. Current Visit: Yes Hospitalist: Subjective Interval history: Patient has been seen interviewed and examined chart has been reviewed. She still has some pinkish urine. From what I understand there may be a procedure that the urologist has to do. For that reason patient has been kept here today. I discussed with the head nurse on the floor who verified with Dr. Orozco. This came after discussion with Dr. Leroy the director business integration. Exam - Constitutional Vitals: Period Temp Pulse Resp BP Sys/Campos Pulse Ox Last 24 Hr 97.3 F-98.6 F 60-63 16-20 105-155/57-80 95-97 General appearance: normal weight - Head Head exam: Present: normocephalic - Eye Eye exam: Present: EOMI Pupils: Present: AYAAN - Respiratory Respiratory exam: Present: clear to auscultation bilaterally - Cardiovascular Cardiovascular exam: Present: regular rate and rhythm - GI/Abdominal GI/Abdominal exam: Present: normal bowel sounds, soft - Neurological Exam Neurological exam: Present: alert, oriented X3, CN II-XII intact - Psychiatric Psychiatric exam: Present: normal affect, normal mood - Skin Skin exam: Present: normal color, warm, dry Results - Labs CBC & BMP: 03/16/17 05:59 03/12/17 06:25 Lab Results: I have reviewed the past 24 hour labs Quality Measures - Stroke Symptom Onset Unknown: No Specialty Discharge - Follow Up or Referrals Follow up with: Rl Cagle MD [Physician] - 1 Month Luis Vu MD [Physician] - 2 Weeks
--- NOTE | 2017-03-17 12:30 | Urology Progress Note ---
Assessment and Plan (1) Gross hematuria Status: Acute Current Visit: Yes (2) Abnormal CT of the abdomen Status: Acute Assessment and plan: Hematuria is clearing. I am going to order an ultrasound to evaluate her kidneys. Difficult to tell with her CT because it is not a contrasted study. Has multiple cysts. No stones and no discrete masses. Current Visit: Yes Urology - PN: Subj Interval history: Patient continues to bleed with every void. I will cystoscope her in the morning. Unfortunately the bleeding is too much we cannot see anything and I suspect that this will lead to nephrectomy. Exam - Constitutional Vitals: Period Temp Pulse Resp BP Sys/Campos Pulse Ox Last 24 Hr 97.3 F-98.6 F 60-63 16-20 105-155/57-80 95-97 Results - Labs CBC & BMP: 03/16/17 05:59 03/12/17 06:25 Specialty Discharge - Follow Up or Referrals Follow up with: Rl Cagle MD [Physician] - 1 Month Luis Vu MD [Physician] - 2 Weeks
--- NOTE | 2017-03-18 07:00 | Nephrology Progress Note ---
Nephrology - PN: Subj Interval history: Patient continues to bleed into her urine. Review of systems pulmonary she denies shortness of breath, GI she denies nausea Physical exam general the patient in no acute distress Assessment/plan #1. End-stage renal disease-we will continue hemodialysis support 2. Hematuria-this patient's to have a cystoscope today 3. Diabetes mellitus is controlled 4. Hypertension this control 5. Polycystic kidney disease Exam (PN)-Nephrology - Vital Signs Vital signs: Period Temp Pulse Resp BP Sys/Campos Pulse Ox Last 24 Hr 97.4 F-98.4 F 60-91 18-20 141-157/69-96 95-98 - Lab 03/16/17 05:59 03/12/17 06:25 Most recent lab results Calcium 9.0 MG/DL (8.5-10.1) 03/12/17 06:25 Magnesium 2.7 MG/DL (1.8-2.4) H 03/12/17 06:25 Assessment and Plan (1) Chronic renal disease, stage V Status: Chronic Assessment and plan: This patient's creatinine as an outpatient about a month or so ago was around 8 mg/dL after her hip surgery at increased around 9 mg/dL, her kidney function remained stable her chemistries look okay she is having some nausea and vomiting however think this may be related to her acute illness. She does have a fistula in her left arm and it would be easy to start her on dialysis if necessary. However at this time I think the patient remains asymptomatic enough that we can continue to monitor her kidney function without dialysis for right now. Current Visit: Yes (2) Blood loss anemia Status: Acute Current Visit: Yes (3) Diabetes mellitus Status: Chronic Current Visit: Yes (4) Hematuria Status: Acute Current Visit: Yes (5) Hypertension Status: Chronic Current Visit: Yes Specialty Discharge - Follow Up or Referrals Follow up with: Rl Cagle MD [Physician] - 1 Month Luis Vu MD [Physician] - 2 Weeks
[2017-03-18] MEDS: INSULIN LISPRO 100 UNIT/ML SUBCUT SCH ×4 (08:01→20:00)
--- NOTE | 2017-03-18 08:26 | Physician Query Form ---
CLICK EDIT DOCUMENT TO SELECT QUERY ANSWER --> OK --> SIGN Snow Lorenzo RN Clinical Chief Of Internal Medicine W) [phone] (f) [phone] [email or web address] PROVIDERS: Make your selection(s) from the choices in EACH section by typing an "x" and enter comments in the comment section. Please use your independent medical judgment in providing your response. This request does not imply that any particular answer is desired or expected. CLINICAL INDICATORS: (Providers should not edit this section) Based on lab results of creatinine on admission of 8.50 and increased to 9.30 with a GFR of 5. Pt. treated with IV fluids of Normal Saline. Pt. has documented CKD stage 5. Clarify which of the following most accurately represents the patient's renal status: ( ) Acute kidney injury (non-traumatic) ( ) Acute renal failure ( ) Acute renal failure with underlying Chronic Kidney Disease (CKD) - please provide stage below (x ) CKD - please provide stage below (x ) End Stage Renal Disease ( ) Other, please specify: ( ) Clinically unable to determine Chronic Kidney Disease Stages Source: National Kidney Disease Foundation ( ) Stage I (eGFR > or = 90) ( ) Stage II (eGFR 60 - 89) ( ) Stage III (eGFR 30 - 59) ( ) Stage IV (eGFR 15 - 29) ( x) Stage V (eGFR < 15 or dialysis) COMMENTS: PLEASE ALSO DOCUMENT RESPONSE IN PROGRESS NOTES AND/OR DISCHARGE SUMMARY Use of terms such as suspected, likely, or probable (associated with a specific diagnosis that is being evaluated, monitored, or treated as if it exists) are acceptable and can be restated in the discharge summary if not ruled out. MTDD
[2017-03-18] MEDS ORDERED: LIDOCAINE 2% TOP JELLY 20 ML VIAL INTRAURETH ONE (08:38)
--- NOTE | 2017-03-18 09:42 | Operative Note ---
Date of procedure: 03/18/17 Pre-op diagnosis: Gross hematuria Post-op diagnosis: same Procedure: 67-year-old black female with renal failure had intermittent gross hematuria. She is brought in to rule out lower pathology. She has an upper tract abnormal kidney with multiple cysts. Patient brought cystoscopy area prepared and draped usual sterile manner. 2% lidocaine jelly placed in urethra and bladder for anesthesia. Flexible 16 [place] cystourethroscope passed under direct vision. Urethra is normal. The bladder was surprisingly full of bloody urine this was irrigated and washed out. There is a lot of sediment and there appears to probably be hemorrhagic cystitis. We will culture. We will start her on antibiotics. Patient tolerated procedure well and was sent to room in good condition. Anesthesia: local Surgeon / Physician: Viral Orozco Estimated blood loss: minimal Specimens: other (Urine for culture, catheterized) Condition: stable Disposition: floor Results - Labs CBC & BMP: 03/16/17 05:59 03/12/17 06:25 Discharge Plan - Discharge Medications No Action Amlodipine Besylate 1 tablet PO DAILY Carvedilol 1 tablet PO BID Apixaban [Eliquis] 1 tablet PO BID hydrOXYzine pamoate [Hydroxyzine Pamoate] 25 mg PO Q8HR PRN PRN Reason: Itching Lisinopril/Hctz 20-25 [Prinzide 20-25] 1 tablet PO DAILY Insulin Detemir [Levemir] 20 units SUBCUT BID Furosemide Tab [Lasix Tab] 1 tablet PO DAILY - Follow Up or Referral Follow Up: Rl Cagle MD [Physician] - 1 Month Luis Vu MD [Physician] - 2 Weeks - Forms/Instructions
[2017-03-18 10:31] LABS: Apearance,Urine CLOUDY (Clear); Bilirubin,Urine Negative (Negative); Blood, Urine Large mg/dL (Negative); Glucose,Urine (UA) Negative (Negative); Ketones,Urine Negative (Negative); Nitrite,Urine Negative (Negative); Protein,Urine Negative; RBC,Urine 882 /HPF (0-4); Squamous Epithelial Cell,Urine Few /HPF (0-10); Urine Color Yellow (Yellow); Urine Specific Gravity 1.003 (1.001-1.035); Urine Urobilinogen < 2.0 EU/DL (0.2-1.0); WBC,Urine 1704 /HPF (0-6)
[2017-03-18] MEDS: DILTIAZEM CD 120 MG CAPSULE PO SCH (11:06)
[2017-03-18] MEDS: AMIODARONE 200 MG TABLET PO SCH ×2 (11:07→20:03)
[2017-03-18] MEDS: NITROFURANTOIN MACRO/MONO 100 MG CAPSULE PO SCH ×2 (11:08→20:03)
[2017-03-18] MEDS: OXYBUTYNIN XL 5 MG TABLET PO SCH (11:08)
[2017-03-18] MEDS: CARVEDILOL 25 MG TABLET PO SCH ×2 (11:08→20:03)
[2017-03-18] MEDS: PANTOPRAZOLE 40 MG VIAL IV SCH (11:29)
--- NOTE | 2017-03-18 15:16 | Hospitalist Progress Note ---
Assessment and Plan (1) Hematuria Status: Acute Assessment and plan: Patient has a cystoscopy today. Finding of all bladder full of bloody urine after irrigation does a lot of sludge still. Dr. Orozco thinks this was in cystitis. Patient has been started on a Macrodantin. Watch out for development of shortness of breath in the long run and hopefully this will be there for a long time. Macrodantin is known to cause pulmonary fibrosis. Current Visit: Yes Qualifiers: Hematuria type: gross Qualified Code(s): R31.0 - Gross hematuria (2) Anemia Status: Acute Assessment and plan: This is anemia of chronic disease given chronic kidney injury. Current Visit: Yes Qualifiers: Anemia type: due to chronic kidney disease Chronic kidney disease stage: stage 5, not on chronic dialysis Qualified Code(s): N18.5 - Chronic kidney disease, stage 5; D63.1 - Anemia in chronic kidney disease (3) Chronic renal disease, stage V Status: Chronic Assessment and plan: Nephrology is following. Current Visit: Yes Hospitalist: Subjective Interval history: Patient has been seen interviewed and examined and chart has been reviewed. Cystoscopy this morning and is going to go for dialysis today. Patient should be doing very well depending on the recommendation of Dr. Orozco and the lead java software engineer patient will be discharged in the coming 2448 hrs. Exam - Constitutional Vitals: Period Temp Pulse Resp BP Sys/Campos Pulse Ox Last 24 Hr 97.1 F-98.4 F 60-91 14-20 142-173/70-96 95-100 General appearance: over weight - Head Head exam: Present: normocephalic, atraumatic - Eye Eye exam: Present: EOMI Pupils: Present: AYAAN - Respiratory Respiratory exam: Present: clear to auscultation bilaterally - Cardiovascular Cardiovascular exam: Present: regular rate and rhythm - GI/Abdominal GI/Abdominal exam: Present: normal bowel sounds, soft - Extremities Exam Extremities exam: Present: full ROM - Neurological Exam Neurological exam: Present: alert, oriented X3, CN II-XII intact - Psychiatric Psychiatric exam: Present: normal affect, normal mood - Skin Skin exam: Present: normal color, warm, dry Results - Labs CBC & BMP: 03/16/17 05:59 03/12/17 06:25 Lab Results: I have reviewed the past 24 hour labs Quality Measures - Stroke Symptom Onset Unknown: No Specialty Discharge - Follow Up or Referrals Follow up with: Rl Cagle MD [Physician] - 1 Month Luis Vu MD [Physician] - 2 Weeks
--- NOTE | 2017-03-19 07:48 | Discharge Summary ---
Hospital Course - Hospital Course Hospital Course: Ms. Chavez is a 67 year old female who I follow in the outpatient setting for chronic renal failure. The patient was admitted yesterday for hematuria. The patient states about 3 days prior to admission she developed some severe pain in her abdomen and noticed some blood in her toilet bowl after going to the bathroom. The pain persisted over the ensuing day or so and she continued to have some blood in her urine. The patient's pain had improved by the following day. Patient did have some nausea and vomiting yesterday. The patient has had a CT scan of her abdomen that shows a density in her right kidney thought to be consistent with a hematoma. The patient is also noted to have multiple cysts throughout both kidneys. The patient denies any shortness of breath she denies any decreased intake. She does state that her urine output has decreased some the past few days. Ms. Chavez was admitted to the hospital with hematuria and stage V chronic renal disease. She was begun on hemodialysis by the consulting manager of enterprise who has been following her Dr. Gee Escobar. She was seen in consultation by Dr. Luis Vu of cardiology for paroxysmal atrial fibrillation with rapid ventricular response during hemodialysis. She was seen in consultation by Dr. Viral Orozco of urology who performed cystoscopy on the patient in 03/18/17. She was found at that time to have hematuria which was presumed to be secondary to urinary tract infection. Cultures were obtained that were pending at the time of discharge. She was begun on nitrofurantoin by Dr. Orozco. At the time of her discharge she was comfortable with no complaints. Diagnosis - Discharge Diagnosis (1) UTI (urinary tract infection) Status: Acute (2) Hematuria Status: Acute (3) Chronic renal disease, stage V Status: Chronic (4) Atrial fibrillation Status: Chronic (5) Hypertension Status: Chronic (6) Diabetes mellitus Status: Chronic Specialty Discharge - Follow Up or Referrals Follow up with: Rl Cagle MD [Physician] - 1 Month Luis Vu MD [Physician] - 2 Weeks Discharge Plan - Discharge Data Disposition: Disch To Home/Self Care Condition at Discharge: Stable Discharge Diet: diabetic diet Activity: resume usual activities as tolerated - Discharge Medications New Diltiazem Cd Cap [Cardizem CD] 120 mg PO DAILY #30 capsule Nitrofurantoin Macro/Hudspeth [Macrobid] 100 mg PO BID #20 capsule Oxybutynin Xl [Ditropan Xl] 5 mg PO DAILY #30 tablet Amiodarone Tab [Cordarone Tab] 400 mg PO DAILY #30 tablet Continue Amlodipine Besylate 1 tablet PO DAILY Carvedilol 1 tablet PO BID Apixaban [Eliquis] 1 tablet PO BID hydrOXYzine pamoate [Hydroxyzine Pamoate] 25 mg PO Q8HR PRN PRN Reason: Itching Lisinopril/Hctz 20-25 [Prinzide 20-25] 1 tablet PO DAILY Insulin Detemir [Levemir] 20 units SUBCUT BID Furosemide Tab [Lasix Tab] 1 tablet PO DAILY - Follow Up or Referral Follow Up: Rl Cagle MD [Physician] - 1 Month Luis Vu MD [Physician] - 2 Weeks - Forms/Instructions Exam - Constitutional Vitals: Period Temp Pulse Resp BP Sys/Campos Pulse Ox Last 24 Hr 97.1 F-98.4 F 59-66 14-20 107-173/71-88 97-100 Discharge Results Procedures and tests throughout hospitalization: Pending Orders 03/11/17 17:46 Occult Blood, Stool Routine 03/18/17 Urine Culture Routine Labs on day of discharge: Labs from last 24 hours 03/18/17 03/18/17 03/18/17 20:07 17:18 11:53 POC Glucose 164 H 71 L 201 H Urine Color Urine Appearance Urine pH Ur Specific [place] Urine Protein Urine Glucose (UA) Urine Ketones Urine Blood Urine Nitrate Urine Bilirubin Urine Urobilinogen Urine Leukocytes Urine RBC Urine WBC Urine WBC Clumps Ur Squamous Epith Cells Ur Culture Indicated? 03/18/17 09:40 POC Glucose Urine Color Yellow Urine Appearance Cloudy Urine pH 6.0 Ur Specific [place] 1.003 Urine Protein Negative Urine Glucose (UA) Negative Urine Ketones Negative Urine Blood Large Urine Nitrate Negative Urine Bilirubin Negative Urine Urobilinogen < 2.0 H Urine Leukocytes Large H Urine RBC 882 Urine WBC 1704 Urine WBC Clumps Many Ur Squamous Epith Cells Few Ur Culture Indicated? Results to follow DS: Provider Date of admission: 03/11/17 16:57 Primary care physician: . No PCP Attending physician on admission: Gee Colvin MD Consults: 03/11/17 17:50 Consult to Physician [CONS] Routine Comment: chronic renal failure Consulting Provider: Gee Escobar When should Consulting Provider be notified: Now Person Notified: SIENNA Date Notified: 03/12/17 Time Notified: 09:50 Consult Notification Comment: a patient of Dr Escobar: being followed for chronic renal disease without dialysis at present being admitted for hematuria and H&H 6 & 20 03/11/17 18:21 Consult to Physician [CONS] Routine Comment: hematuria and right kidney mass Consulting Provider: Viral Orozco When should Consulting Provider be notified: Now Person Notified: md malhotra Date Notified: 03/12/17 Time Notified: 09:48 Consult Notification Comment: hematuria and H&H 6.5 & 20.2 03/13/17 12:25 Consult to Physician [CONS] Routine Comment: afib with rvr, new onset Consulting Provider: Cardiology - [facility] Consult to Specialist Group: Cardiology Person Notified: Cam Date Notified: 03/13/17 Time Notified: 12:29 03/14/17 09:09 Consult to Case Mgmt/Social Srvs [CONS] Routine Reason for Case Mgmt/Social Srvs: Dialysis Consult Comment: new on dialysis 03/14/17 13:35 Consult to Physician [CONS] Routine Comment: aflutter ? ablation candidate Consulting Provider: Rl Cagle Person Notified: carol Date Notified: 03/14/17 Time Notified: 15:07 03/16/17 14:46 Consult to Occupational Therapy [CONS] Routine Reason for Occupational Therapy: Weakness Consult to Physical Therapy [CONS] Routine Reason for Physical Therapy: Weakness Discharging clinician: Foreign Vazquez
[2017-03-19] MEDS: INSULIN LISPRO 100 UNIT/ML SUBCUT SCH (08:09)
[2017-03-19] MEDS: NITROFURANTOIN MACRO/MONO 100 MG CAPSULE PO SCH (08:19)
[2017-03-19] MEDS: CARVEDILOL 25 MG TABLET PO SCH (08:19)
[2017-03-19] MEDS: OXYBUTYNIN XL 5 MG TABLET PO SCH (08:19)
[2017-03-19] MEDS: PANTOPRAZOLE 40 MG VIAL IV SCH (08:19)
[2017-03-19] MEDS: DILTIAZEM CD 120 MG CAPSULE PO SCH (08:19)
[2017-03-19] MEDS: AMIODARONE 200 MG TABLET PO SCH (08:19)
[2017-03-19 08:35] VITALS: BP 159/63
--- NOTE | 2017-03-19 08:53 | Urology Progress Note ---
Assessment and Plan (1) Gross hematuria Status: Acute Current Visit: Yes (2) Abnormal CT of the abdomen Status: Acute Assessment and plan: Hematuria is clearing. I am going to order an ultrasound to evaluate her kidneys. Difficult to tell with her CT because it is not a contrasted study. Has multiple cysts. No stones and no discrete masses. Current Visit: Yes Urology - PN: Subj Interval history: Cultures pending. Patient's hematuria and sees. She will go home on Macrobid for 10 days. I will make her an appointment see me in 2 weeks. I will follow- up the culture. I think all this may be hemorrhagic cystitis. Exam - Constitutional Vitals: Period Temp Pulse Resp BP Sys/Campos Pulse Ox Last 24 Hr 97.1 F-98.4 F 57-66 14-20 107-165/63-88 97-100 Results - Labs CBC & BMP: 03/16/17 05:59 03/12/17 06:25 Specialty Discharge - Follow Up or Referrals Follow up with: Rl Cagle MD [Physician] - 1 Month Viral Orozco MD [Physician] - 04/03/17 2:30 pm Luis Vu MD [Physician] - 2 Weeks
== END 2017-03-19 10:00 | disposition home health service (06) | DRG 689 ==
LOC: N.ED 14:07 → SUATTDRO 16:57 → N.EDINP 16:57 → N.5E 18:30
PROVIDERS: ADMIT Internal Medicine